=== PATIENT | male | born 1990 | race African-American/Black ===

== ENCOUNTER 2016-11-14 12:26 | Inpatient (IN) | payer MEDICARE, MEDICAID ==
[~2016-11-14] VITALS: Ht 188 cm; Wt 67.2 kg
--- NOTE | 2016-11-14 13:27 | REP ---
Chest x-ray: Two views. History: Chest pain. . Comparison study: No comparison study. . Findings: The lungs are well inflated and free of infiltrate. The pleural angles are sharp. The heart size is normal. Pulmonary vasculature is not increased. No significant bony abnormality is seen. EKG monitoring electrodes overlie the chest. Impression: Negative chest x-ray. Signed by Gennaro Carranza MD 11/14/2016 01:18 P
[2016-11-14] MEDS ORDERED: ASPIRIN 81 MG CHEW TABLET As Ordered ONE (13:30)
[2016-11-14] MEDS ORDERED: MORPHINE 4 MG/ML 1ML SYRINGE As Ordered ONE ×3 (13:30→15:28)
[2016-11-14 13:38] LABS: RETIC HEMOGLOBIN CONTENT CHr 31.6 PG (24-36); RETICULOCYTE % ADVIA2120 7.2 % (0.5-1.5)
[2016-11-14 13:43] LABS: BASO % 0.7 % (0.0-1.0); EOS # 0.1 K/mm3 (0.0-0.50); EOS % 2.1 % (0.0-3.0); LARGE UNSTAINED CELL # 0.2 K/mm3 (0.0-0.4); LYMPH # 2.2 K/mm3 (1.5-6.5); LYMPH % 34.3 % (24.0-44.0); MEAN CORPUSCULAR HEMOGLOBIN 31.6 pg (27.0-33.0); MEAN CORPUSCULAR HGB CONC 33.9 g/dl (32.0-36.5); MEAN CORPUSCULAR VOLUME 93.3 fl (80.0-96.0); MONO # 0.6 K/mm3 (0.0-0.8); MONO % 9.2 % (0.0-5.0); NEUTROPHILS # 3.3 K/mm3 (1.8-7.7); NEUTROPHILS % 50.8 % (36.0-66.0); PLATELET COUNT, AUTOMATED 412 k/mm3 (150-450); RED CELL DISTRIBUTION WIDTH 16.7 % (11.5-14.5); WHITE BLOOD COUNT 6.4 K/mm3 (4.0-10.0)
[2016-11-14 14:03] LABS: ANION GAP 6 MEQ/L (8-16); BLOOD UREA NITROGEN 6 MG/DL (7-18); CALCIUM LEVEL 8.9 MG/DL (8.5-10.1); CARBON DIOXIDE LEVEL 28 MEQ/L (21-32); CHLORIDE LEVEL 109 MEQ/L (98-107); CREATININE FOR GFR 0.73 MG/DL (0.70-1.30); GLOMERULAR FILTRATION RATE > 60.0 (>60); GLUCOSE, FASTING 91 MG/DL (70-105); SODIUM LEVEL 143 MEQ/L (136-145)
[2016-11-14] MEDS ORDERED: IBUP800T23 PO (15:32)
[2016-11-14] MEDS ORDERED: FOLI400T PO (15:32)
[2016-11-14] MEDS ORDERED: HYDROmorphone HCL 1 MG/ML SYRINGE (J1170) IV PRN (15:45)
--- NOTE | 2016-11-14 15:55 | HPEPDOC ---
General Date of Admission 11/14/2016 - 352PM Chief Complaint The patient is a 26-year-old male Presented to the ER with complaints of chest, back and left arm pain for 3 days duration History of Present Illness Patient is a 26 year old male with a past medical history of Sickle cell disease and a hole in the heart who presented to the ER with complaints of left arm, chest and back pain for 3 days duration. Patient notes that the pain began gradually and then persisted. He noted the pain was a sharp / throbbing intensity, rated at 10/10, continuous pain. He notes that he has tried to take ibuprofen for the pain, but there has been no relief. He notes that he has been having some shallow breathing because of the pain. He does not cold sweats. He denies any cough, fever or chills. He denies any nausea or vomiting. Denies abdominal pain, constipation, diarrhea or urinary symptoms. Patient is from [place] and has been here for 2 weeks. He notes that back home, he did not follow up with his primary care physician or [facility] general counsel for greater than 1 year. He notes that he is supposed to take folic acid, but has stopped taking it for the last 1 month. He notes the last time he had a sickle cell crisis was 1 year ago. He has received transfusions in the past and has not had any complications because of it. Home Medications Scheduled Folic Acid (Folic Acid) 400 Mcg Tab 400 MCG PO DAILY (Reported) Scheduled PRN Ibuprofen (Ibuprofen) 800 Mg Tab 800 MG PO TID PRN PRN PAIN (Reported) Allergies Coded Allergies: No Known Allergies (Unverified , 11/14/16) Past Medical History Medical History Sickle cell disease Hole in heart Surgical History None Family History Family History - Mother with sickle cell trait and breast cancer - Father with sickle cell trait Social History Social History - Denies the use of alcohol or illicit drugs, Smokes for the last 10 years at less than 1 ppd - Denies sick contacts - Lives with Girlfriend in [place] for 2 weeks, from [place] originally - Occupation; Student Review of Symptoms Other systems Constitutional: Denies weight loss, change in appetite, or recent trauma Eyes: No visual changes or eye pain Ears, Nose, Throat: Denies nose bleeds, or difficulty swallowing Cardiovascular: Positive chest pain, Mild sweating, No orthopnea Respiratory: Denies cough, or wheezing, Positive for mild shortness of breath GI: Joe nausea, vomiting, abdominal pain, diarrhea or constipation : Denies pain with urination or frequency Musculoskeletal: Denies joint pain or swelling Neuro / Psych: Denies muscle weakness or sensory loss Skin: No skin rashes noted All other review of systems negative; otherwise stated in history of present illness Vital Signs - Vitals: BP 133/60, HR 100, RR 18, Sat 95%NC2L, Temp 98.9F - General: Lying in bed, Uncomfortable, Speaking in full sentences, AAOx3 - HEENT: NC, AT, PERRLA, EOMI - CVS: RRR, +S1S2, - Lungs: Fair air entry bilaterally, Clear to auscultation, No wheezing / rales / rhonchi - Abdomen: Soft, Non-distended, Non-tender, + Bowel sounds x 4 - Extremities: + PPx4, No lower extremity edema, No calf tenderness - Neuro: No focal motor or sensory deficit - Skin: No visible rashes Laboratory Data Labs 24H Laboratory Tests 2 11/14/16 13:15: 11/14/16 13:24: Absolute Reticulocyte Count 246H, Anion Gap 6L, White Blood Count 6.4, Red Blood Count 3.43L, Hemoglobin 10.9L, Hematocrit 32.0L, Mean Corpuscular Volume 93.3, Mean Corpuscular Hemoglobin 31.6, Mean Corpuscular Hemoglobin Concent 33.9 , Red Cell Distribution Width 16.7H, Platelet Count 412, Neutrophils (%) (Auto) 50.8, Lymphocytes (%) (Auto) 34.3, Monocytes (%) (Auto) 9.2H, Eosinophils (%) ( Auto) 2.1, Basophils (%) (Auto) 0.7, Neutrophils # (Auto) 3.3, Lymphocytes # ( Auto) 2.2, Monocytes # (Auto) 0.6, Eosinophils # (Auto) 0.1, Basophils # (Auto) 0.0, Blood Urea Nitrogen 6L, Creatinine 0.73, Sodium Level 143, Potassium Level 4.0, Chloride Level 109H, Carbon Dioxide Level 28, Calcium Level 8.9, Total Creatine Kinase 47, Creatine Kinase MB 1.0, Creatine Kinase MB Relative Index 2.12, Glomerular Filtration Rate > 60.0, Large Unclassified Cells # 0.2, Large Unclassified Cells % 3.0, Percent Reticulocyte Count 7.20H, Reticulocyte Hgb Content (CHr) 31.6, Troponin I < 0.02 CBC/BMP Laboratory Tests 11/14/16 13:24 Calcium Level 8.9, Total Creatine Kinase 47, Red Blood Count 3.43 L, Mean Corpuscular Volume 93.3, Mean Corpuscular Hemoglobin 31.6, Mean Corpuscular Hemoglobin Concent 33.9, Red Cell Distribution Width 16.7 H, Neutrophils (%) ( Auto) 50.8, Lymphocytes (%) (Auto) 34.3, Monocytes (%) (Auto) 9.2 H, Eosinophils (%) (Auto) 2.1, Basophils (%) (Auto) 0.7, Neutrophils # (Auto) 3.3, Lymphocytes # (Auto) 2.2, Monocytes # (Auto) 0.6, Eosinophils # (Auto) 0.1, Basophils # (Auto) 0.0 Plan / VTE VTE Prophylaxis Ordered?: Yes Plan Plan Left arm, chest and back pain likely 2/2 sickle cell pain crisis - Presented with continuous pain for 3 days duration, unable to be controlled by Ibuprofen - History of similar events 1 year ago with chest and back pain - Physical unrevealing - CXR 11/14: negative - EKG 11/14: sinus rhythm, no ST segment deviations or T wave changes - Reticulocyte count elevated, Hg currently at 10.9 (No baseline available) - Will check iron panel, B12, Folate, Haptoglobin, LDH, Direct Dion - Will follow H&H q6 hours, follow reticulocyte count - c/w IV fluid hydration with NS, oxygen supplementation and pain control with Dilaudid - Will keep on PCU Gastrointestinal prophylaxis - Will start protonix DVT prophylaxis - Will start SCDs Will be signed out to ADRIANE Marie MD Nov 14, 2016 15:55
[2016-11-14 16:07] LABS: BILIRUBIN,DIRECT 0.4 MG/DL (0.0-0.2); BILIRUBIN,TOTAL 1.3 MG/DL (0.2-1.0); FOLATE 13.9 NG/ML (>5.4); PERCENT SATURATION 27.8 % (19.7-37.4)
[2016-11-14 16:58] LABS: ADD MORPHOLOGY? YES
[2016-11-14 17:00] LABS: ANISOCYTOSIS 1+; SICKLE CELLS 3+
[2016-11-14 17:02] LABS: POIKILOCYTOSIS 1+; POLYCHROMASIA 1+
[2016-11-14 17:08] LABS: HOWELL-JOLLY BODIES 1+
[2016-11-14] MEDS ORDERED: HYDROmorphone HCL 1 MG/ML SYRINGE (J1170) As Ordered ONE (17:10)
[2016-11-14] MEDS ORDERED: LORazepam 2 MG/ML VIAL (J2060) IV PRN (19:45)
--- NOTE | 2016-11-14 20:09 | EDDOCDS ---
Physician Documentation [facility] Name: Aureliano Crockett Age: 26 yrs Sex: Male : 1990 Arrival Date: 11/14/2016 Time: 12:26 Bed 9 Private MD: NO PRIMARY PHYSICIAN, . Disposition: 11/14/16 15:03 Hospitalization ordered by Cordell Bell for Inpatient Admission. Preliminary diagnosis are Other sickle-cell disorders with crisis, Chest pain, unspecified. - Bed requested for PCU. - Status is Inpatient Admission. kas2 - Condition is Stable. - Problem is new. - Symptoms are unchanged. Historical: - Allergies: no known allergies; - Home Meds: 1. Folic Acid Unknown Oral once daily 2. ibuprofen 800 mg Oral tab 1 tab 3 times per day - PMHx: heart valve regurgitation; Heart Murmur; Sickle Cell; - PSHx: none; - Social history: Smoking status: Patient uses tobacco products, light tobacco smoker. No barriers to communication noted, The patient speaks fluent Kiswahili, Speaks appropriately for age. - Family history: Not pertinent. - : The pt / caregiver states he / she is not on anticoagulants. Home medication list is obtained from the patient. - Exposure Risk Screening:: None identified. Vital Signs: 11/14 12:27 BP 148 / 81; Pulse 92; Resp 18; Temp 98.9(O); Pulse Ox 98% on R/A; Weight 63.5 kg / elp 139.99 lbs (R); Height 6 ft. 2 in. (187.96 cm) (R); Pain 9/10; 12:58 BP 136 / 79 (auto/); ms18 12:59 Pulse 88 MON; Pulse Ox 98% ; ms18 13:13 BP 135 / 70 (auto/); ms18 13:14 Pulse 96 MON; Pulse Ox 95% ; ms18 13:28 BP 122 / 67 (auto/); ms18 13:32 Pulse 92 MON; Pulse Ox 96% ; ms18 13:43 BP 124 / 65 (auto/); ms18 13:44 Pulse 92 MON; Pulse Ox 94% ; ms18 13:58 BP 136 / 72 (auto/); ms18 13:59 Pulse 82 MON; Pulse Ox 95% ; ms18 14:13 BP 133 / 60 (auto/); ms18 14:13 Pulse 100 MON; Pulse Ox 95% ; ms18 14:28 BP 140 / 66 (auto/); ms18 14:29 Pulse 84 MON; Pulse Ox 96% ; ms18 14:43 BP 142 / 63 (auto/); ms18 14:44 Pulse 82 MON; Pulse Ox 97% ; ms18 14:58 BP 119 / 57 (auto/); ms18 14:59 Pulse 82 MON; Pulse Ox 98% ; ms18 15:14 BP 135 / 62 (auto/); ms18 15:14 Pulse 86 MON; Pulse Ox 100% ; ms18 15:32 BP 137 / 67 (auto/); ms18 15:33 Pulse 90 MON; Pulse Ox 100% ; ms18 17:04 BP 154 / 74; Pulse 93; Resp 18; Temp 99.9(TE); Pulse Ox 98% on R/A; Pain 9/10; ms18 17:04 BP 154 / 74 (auto/); kas2 17:04 Pulse 98 MON; Pulse Ox 98% ; kas2 17:28 Pulse 76 MON; Pulse Ox 99% ; ms18 17:29 BP 138 / 65 (auto/); Resp 20; ms18 19:30 BP 157 / 70; Pulse 100; Resp 25; Temp 97.9(O); Pulse Ox 97% on R/A; Pain 9/10; jmv 12:27 Body Mass Index 17.97 (63.50 kg, 187.96 cm) elp MDM: 12:43 ECG WITH READING ER PHYS+CARDIAG ordered. EDMS 13:02 Fur Scraper/Pulse Ox/q 30 min VS ordered. br1 13:02 IV Saline Lock ordered. br1 13:02 Rhythm Strip to chart ordered. br1 13:02 Undress patient appropriately for examination ordered. br1 13:03 Basic Metabolic Profile Ordered. EDMS 13:03 CBC with Diff Ordered. EDMS 13:03 Cardiac Injury Profile Ordered. EDMS 13:03 Troponin Ordered. EDMS 13:04 Chest, 2 View (pa\E\lat) Ordered. EDMS 13:05 Reticulocyte Count Ordered. EDMS 13:20 NS 0.9% 1000 ml IV at bolus once ordered. br1 13:20 morphine 4 mg IVP once ordered. br1 13:20 Aspirin 324 mg PO once ordered. br1 13:56 CBC with Diff Reviewed. br1 13:56 Reticulocyte Count Reviewed. br1 14:08 Basic Metabolic Profile Reviewed. br1 14:08 Cardiac Injury Profile Reviewed. br1 14:08 Troponin Reviewed. br1 14:08 Chest, 2 View (pa\E\lat) Reviewed. br1 14:10 morphine 4 mg IVP once ordered. br1 14:55 morphine 4 mg IVP once ordered. br1 14:56 BED REQUEST+ADM ordered. EDMS 15:32 Admission / Observation Status ordered. EDMS 15:32 ELECTROCARDIOGRAM ADULT ordered. EDMS 15:32 REGULAR DIET ordered. EDMS 15:33 CARDIAC INJURY PROFILE Ordered. EDMS 15:33 TROPONIN Ordered. EDMS 15:33 URINALYSIS Ordered. EDMS 15:33 IRON (FE) Ordered. EDMS 15:33 TOTAL IRON BINDING CAPACIT Ordered. EDMS 15:33 FERRITIN Ordered. EDMS 15:33 VITAMIN B12 LEVEL Ordered. EDMS 15:33 FOLATE Ordered. EDMS 15:33 HAPTOGLOBIN Ordered. EDMS 15:34 LACTATE DEHYDROGENASE Ordered. EDMS 15:34 BILIRUBIN,TOTAL Ordered. EDMS 15:34 BILIRUBIN,DIRECT Ordered. EDMS 15:35 URINE CULTURE Ordered. EDMS 16:00 Financial registration complete. zo 16:[address] [facility] [place] Payment Agreement was scanned into [employer] and attached to record. zo 16:04 HEMOGLOBIN & HEMATOCRIT Ordered. EDMS 16:05 BLOOD CULTURES Ordered. EDMS 16:18 DIRECT MEGAN Ordered. EDMS 16:59 RBC MORPH PROF NO CHARGE Ordered. EDMS 17:13 Dilaudid - HYDROmorphone 1 mg IVP once; hospitalist order ordered. ms18 19:31 CARDIAC INJURY PROFILE Ordered. EDMS 19:32 CARDIAC INJURY PROFILE Ordered. EDMS 19:32 TROPONIN Ordered. EDMS 19:32 TROPONIN Ordered. EDMS 19:32 CBC WITH DIFFERENTIAL Ordered. EDMS 19:32 COMPLETE COMPHRENSIVE METABOLI Ordered. EDMS 19:32 MAGNESIUM LEVEL Ordered. EDMS 19:32 HEMOGLOBIN & HEMATOCRIT Ordered. EDMS 19:32 HEMOGLOBIN & HEMATOCRIT Ordered. EDMS 19:32 HEMOGLOBIN & HEMATOCRIT Ordered. EDMS 19:32 HEMOGLOBIN & HEMATOCRIT Ordered. EDMS 19:32 RETICULOCYTE COUNT Ordered. EDMS Administered Medications: 13:39 Drug: NS 0.9% 1000 ml [sodium chloride 0.9 % intravenous solution] Route: IV; Rate: ms18 bolus; Site: left antecubital; 17:07 Follow up: IV Status: Completed infusion; IV Intake: 1000ml ms18 13:39 Drug: morphine 4 mg [morphine 4 mg/mL intravenous cartridge (1 mL)] Route: IVP; Site: ms18 left antecubital; 14:19 Follow up: Response: Pain is unchanged, physician notified ms18 13:39 Drug: Aspirin 324 mg [aspirin 81 mg chewable tablet (4 tabs)] Route: PO; ms18 14:19 Follow up: Response: No Adverse Reaction ms18 14:25 Drug: morphine 4 mg [morphine 4 mg/mL intravenous cartridge (1 mL)] Route: IVP; Site: ms18 left antecubital; 17:07 Follow up: Response: No Adverse Reaction; Pain is unchanged, physician notified ms18 15:36 Drug: morphine 4 mg [morphine 4 mg/mL intravenous cartridge (1 mL)] Route: IVP; Site: ms18 left antecubital; 17:08 Follow up: Response: No Adverse Reaction; Pain is unchanged, physician notified ms18 17:21 Drug: Dilaudid - HYDROmorphone 1 mg [hydromorphone 1 mg/mL injection syringe (1 mL)] ms18 Route: IVP; Site: left antecubital; Signatures: Dispatcher [employer] EDEvita Suresh RN RN jo3 Olin, Zoeann zo Roggie, Brian, MD MD br1 Aleena Malhotra RN RN ms18 Brijesh Pablo RN RN mts Jannie Malhotra RN RN kas2 The chart was reviewed and I authenticate all verbal orders and agree with the evaluation and treatment provided.Corrections: (The following items were deleted from the chart) 16:06 15:33 HEMOGLOBIN & HEMATOCRIT ordered. EDMS EDMS 16:06 15:35 BLOOD CULTURES ordered. EDMS EDMS 16:41 15:32 INDIRECT MEGAN TYPE SPECIFIC ordered. EDMS EDMS 19:36 17:01 RBC MORPH PROF NO CHARGE ordered. EDMS EDMS Attachments: 16:00 [facility] Payment Agreement zo MTDD
--- NOTE | 2016-11-14 20:09 | EDDOCDS ---
Nurse's Notes [facility] Name: Aureliano Crockett Age: 26 yrs Sex: Male : 1990 Arrival Date: 11/14/2016 Time: 12:26 Bed 9 Private MD: NO PRIMARY PHYSICIAN, . Diagnosis: Other sickle-cell disorders with crisis;Chest pain, unspecified Presentation: 11/14 12:39 Presenting complaint: Patient states: Extreme pain in left arm, shoulder radiating down jo3 to hand. Also reporting left anterior chest pain. Has sickle cell. 12:45 Adult Sepsis Screening: Adult Sepsis Screening: Patient's respiratory rate is less than jo3 22. Systolic blood pressure is greater than 100. Patient has a qSOFA score of 0- Negative Sepsis Screen. Suicide/Homicide risk assessment- the patient denies having any suicidal and/or homicidal ideations and does not present with any other emotional, behavioral or mental health complaints. Status: Patient is not a service writer advisor or dependent. Transition of care: patient was not received from another setting of care. 12:45 Acuity: OVIDIO Level 3 jo3 12:45 Acuity: OVIDIO Level 2 jo3 12:45 Method Of Arrival: Walkin/Carried/Asstd jo3 Triage Assessment: 12:47 General: Appears uncomfortable, Behavior is appropriate for age, cooperative. Pain: jo3 Location: left shoulder, arm and left chest Pain. HIV screening NA for this visit Offered previously. Neurological: Level of Consciousness is awake, alert, Oriented to person, place, time. Respiratory: Airway is patent Respiratory effort is even, unlabored. Historical: - Allergies: no known allergies; - Home Meds: 1. Folic Acid Unknown Oral once daily 2. ibuprofen 800 mg Oral tab 1 tab 3 times per day - PMHx: heart valve regurgitation; Heart Murmur; Sickle Cell; - PSHx: none; - Social history: Smoking status: Patient uses tobacco products, light tobacco smoker. No barriers to communication noted, The patient speaks fluent [place]an, Speaks appropriately for age. - Family history: Not pertinent. - : The pt / caregiver states he / she is not on anticoagulants. Home medication list is obtained from the patient. - Exposure Risk Screening:: None identified. Screenin:26 Screening information is obtained from the patient. Fall risk: No risks identified. ms18 Assistance ADL's: requires no assistance with activities of daily living. Abuse/DV Screen: The patient / caregiver reports he/she is: not in a situation that causes fear, pain or injury. Nutritional screening: No deficits noted. home support is adequate. 17:04 Advance Directives: There is no living will. ms18 Assessment: 13:26 General: Appears in no apparent distress, uncomfortable, Behavior is appropriate for ms18 age, cooperative. Pain: Location: left scapular area, anterior aspect of left upper chest, left breast and left arm Pain currently is 9 out of 10 on a pain scale. Neurological: Level of Consciousness is awake, alert, obeys commands, Oriented to person, place, time, Moves all extremities. Speech is normal. Respiratory: Airway is patent Respiratory effort is even, unlabored. GI: Abdomen is non- distended. Derm: Skin is pink, warm & dry. normal. Musculoskeletal: Range of motion intact in all extremities. No deformity noted Reports pain in back, chest and left arm since 3 days ago. 14:25 General: Appears in no apparent distress, uncomfortable, Behavior is appropriate for ms18 age, cooperative. Pain: Pain currently is 9 out of 10 on a pain scale. Neurological: Level of Consciousness is awake, alert, obeys commands, Oriented to person, place, time. Cardiovascular: Rhythm is sinus rhythm. Respiratory: Airway is patent Respiratory effort is even, unlabored. Derm: Skin is pink, warm & dry. normal. 15:16 General: Appears in no apparent distress, Hospitalist in the room with pt at this time. ms18 Will continue to monitor pt. Neurological: Level of Consciousness is awake, alert, obeys commands. Respiratory: Airway is patent Respiratory effort is even, unlabored. Derm: Skin is pink, warm & dry. normal. 16:58 General: Appears in no apparent distress, Behavior is appropriate for age, cooperative, ms18 PT states that his pain has not changed at all. PT rates 9/10 and is currently eating fast food brought in by a family member. . General: Room number received at this time, will send SBAR. Pain: Pain currently is 9 out of 10 on a pain scale. Neurological: Level of Consciousness is awake, alert, obeys commands, Oriented to person, place, time. Respiratory: Airway is patent Respiratory effort is even, unlabored. Derm: Skin is pink, warm & dry. 17:21 General: Pt and family member have asked several times about pain medication. . ms18 17:34 General: Appears in no apparent distress, Called PCU, at first was told that the pt ms18 could come upstairs to his bed assignment. PCU called back and stated that the room was dirty and would have to wait until the room with cleaned. Pt informed of this. Neurological: Level of Consciousness is awake, alert, obeys commands, Oriented to person, place, time. Cardiovascular: Rhythm is sinus rhythm. Respiratory: No deficits noted. Derm: Skin is pink, warm & dry. normal. 18:32 General: Appears in no apparent distress, Awaiting PCU to call that the bed is clean ms18 and ready. Will continue to monitor pt. Respiratory: No deficits noted. Derm: Skin is pink, warm & dry. normal. 19:02 General: Verbal report given by Aleena Berumen RN. Assumed care of patient at this time.. kas2 19:21 General: Appears in no apparent distress, uncomfortable, well nourished, well groomed, kas2 Behavior is appropriate for age, cooperative. Pain: Location: left arm and chest and back and left breast and anterior aspect of left upper chest and left scapular area Pain currently is 6 out of 10 on a pain scale. Neurological: Level of Consciousness is awake, alert, obeys commands, Oriented to person, place, time. Cardiovascular: Capillary refill < 3 seconds Heart tones S1 S2 present Rhythm is sinus tachycardia No ectopy. Respiratory: No deficits noted. Airway is patent Respiratory effort is even, unlabored, Respiratory pattern is regular, symmetrical, Breath sounds are clear bilaterally. GI: Abdomen is flat, non- distended Bowel sounds present X 4 quads. Abd is soft and non tender X 4 quads. Derm: Skin is intact, Skin is dry, Skin is pink, warm & dry. Skin temperature is warm. Musculoskeletal: Range of motion intact in all extremities. No deformity noted. 19:39 General: Patient is very anxious and complaining of pain running down his left arm kas2 8/10. Patient is requesting more pain meds and ativan. Hospitalist called.. 19:43 General: Resident from hospitalist team called back and RN let him know patients kas2 concerns and wishes and he said he would call Dr. Bell and call RN back in ED.. 19:56 General: RN called Kyara RN on PCU and let her know that we had not heard back from [facility] Dr. Bell on patients pain meds and order for ativan. . Vital Signs: 12:27 BP 148 / 81; Pulse 92; Resp 18; Temp 98.9(O); Pulse Ox 98% on R/A; Weight 63.5 kg (R); elp Height 6 ft. 2 in. (187.96 cm) (R); Pain 9/10; 12:58 BP 136 / 79 (auto/); ms18 12:59 Pulse 88 MON; Pulse Ox 98% ; ms18 13:13 BP 135 / 70 (auto/); ms18 13:14 Pulse 96 MON; Pulse Ox 95% ; ms18 13:28 BP 122 / 67 (auto/); ms18 13:32 Pulse 92 MON; Pulse Ox 96% ; ms18 13:43 BP 124 / 65 (auto/); ms18 13:44 Pulse 92 MON; Pulse Ox 94% ; ms18 13:58 BP 136 / 72 (auto/); ms18 13:59 Pulse 82 MON; Pulse Ox 95% ; ms18 14:13 BP 133 / 60 (auto/); ms18 14:13 Pulse 100 MON; Pulse Ox 95% ; ms18 14:28 BP 140 / 66 (auto/); ms18 14:29 Pulse 84 MON; Pulse Ox 96% ; ms18 14:43 BP 142 / 63 (auto/); ms18 14:44 Pulse 82 MON; Pulse Ox 97% ; ms18 14:58 BP 119 / 57 (auto/); ms18 14:59 Pulse 82 MON; Pulse Ox 98% ; ms18 15:14 BP 135 / 62 (auto/); ms18 15:14 Pulse 86 MON; Pulse Ox 100% ; ms18 15:32 BP 137 / 67 (auto/); ms18 15:33 Pulse 90 MON; Pulse Ox 100% ; ms18 17:04 BP 154 / 74; Pulse 93; Resp 18; Temp 99.9(TE); Pulse Ox 98% on R/A; Pain 9/10; ms18 17:04 BP 154 / 74 (auto/); kas2 17:04 Pulse 98 MON; Pulse Ox 98% ; kas2 17:28 Pulse 76 MON; Pulse Ox 99% ; ms18 17:29 BP 138 / 65 (auto/); Resp 20; ms18 19:30 BP 157 / 70; Pulse 100; Resp 25; Temp 97.9(O); Pulse Ox 97% on R/A; Pain 9/10; jmv 12:27 Body Mass Index 17.97 (63.50 kg, 187.96 cm) elp Vitals: 12:27 Log In Time: November 14, 2016 at 12:25. elp ED Course: 12:26 Patient visited by Bindu Cee PCA. elp 12:26 Patient moved to Waiting elp 12:27 NO PRIMARY PHYSICIAN, . is Private Physician. elp 12:27 Patient visited by Bindu Cee PCA. elp 12:28 Patient visited by Bindu Cee PCA. elp 12:28 Patient moved to Pre RCE elp 12:41 Patient moved to PD2 / jo3 12:46 Triage Initiated jo3 12:48 Patient visited by Evita Teran RN. jo3 12:51 EKG done. (by ED staff). Reviewed by Rosamaria Heredia MD. ct3 12:52 Patient visited by Onelia Wagner PCA. ct3 12:56 Aleena Malhotra,RN is Primary Nurse. ms18 12:56 Patient moved to 9 ms18 12:59 Accompanied by Family Member, Patient has correct armband on for positive ct3 identification. Placed in gown. Bed in low position. Call light in reach. Side rails up X2. shelter monitor on. Pulse ox on. NIBP on. 13:00 Patient visited by Onelia Wagner PCA. ct3 13:01 Naeem Molina MD is Attending Physician. br1 13:19 Patient visited by Naeem Molina MD. br1 13:25 Patient visited by Aleena Malhotra,RN. ms18 13:25 Reticulocyte Count Sent. ms18 13:25 Basic Metabolic Profile Sent. ms18 13:25 CBC with Diff Sent. ms18 13:26 The patient / caregiver is instructed regarding the plan of care and ED course. ms18 Property :Personal belongings accompany Pt. 13:26 Cardiac Injury Profile Sent. ms18 13:26 Troponin Sent. ms18 13:26 Inserted saline lock: 18 gauge in left antecubital area and blood collected. The ms18 patient tolerated the procedure well. 13:39 Patient visited by Aleena Malhotra RN. ms18 14:07 Chest, 2 View (pa\E\lat) Returned. EDMS 14:24 Patient visited by Aleena Malhotra RN. ms18 15:01 Patient visited by Naeem Molina MD. br1 15:03 Cordell Bell is Hospitalizing Provider. br1 16:00 [facility] Payment Agreement was scanned into [employer] and attached to record. zo 16:05 Patient name changed from Aureliano\S\\S\Sapphire\S\ to Aureliano\S\ \S\Sapphire. EDMS 17:04 No procedures done that require assistance. ms18 18:32 Patient visited by Aleena Malhotra RN. ms18 18:59 Jannie Malhotra RN is Primary Nurse. kas2 19:02 Patient visited by Jannie Malhotra RN. kas2 19:25 Patient visited by Jannie Malhotra RN. kas2 19:30 Patient visited by Christopher Holland PCA. jmv 19:44 Patient visited by Jannie Malhotra RN. kas2 19:52 Patient visited by Jannie Malhotra RN. kas2 19:55 Patient visited by Jannie Malhotra RN. kas2 19:57 Patient visited by Jannie Malhotra RN. kas2 Administered Medications: 13:39 Drug: NS 0.9% 1000 ml [sodium chloride 0.9 % intravenous solution] Route: IV; Rate: ms18 bolus; Site: left antecubital; 17:07 Follow up: IV Status: Completed infusion; IV Intake: 1000ml ms18 13:39 Drug: morphine 4 mg [morphine 4 mg/mL intravenous cartridge (1 mL)] Route: IVP; Site: ms18 left antecubital; 14:19 Follow up: Response: Pain is unchanged, physician notified ms18 13:39 Drug: Aspirin 324 mg [aspirin 81 mg chewable tablet (4 tabs)] Route: PO; ms18 14:19 Follow up: Response: No Adverse Reaction ms18 14:25 Drug: morphine 4 mg [morphine 4 mg/mL intravenous cartridge (1 mL)] Route: IVP; Site: ms18 left antecubital; 17:07 Follow up: Response: No Adverse Reaction; Pain is unchanged, physician notified ms18 15:36 Drug: morphine 4 mg [morphine 4 mg/mL intravenous cartridge (1 mL)] Route: IVP; Site: ms18 left antecubital; 17:08 Follow up: Response: No Adverse Reaction; Pain is unchanged, physician notified ms18 17:21 Drug: Dilaudid - HYDROmorphone 1 mg [hydromorphone 1 mg/mL injection syringe (1 mL)] ms18 Route: IVP; Site: left antecubital; Intake: 17:07 IV: 1000.00ml; Total: 1000.00ml. ms18 Order Results: Lab Order: Basic Metabolic Profile; SPEC'M 11/14/16 13:24 Test: GLUCOSE, FASTING; Value: 91; Range: 70-105; Units: MG/DL; Status: F Test: BLOOD UREA NITROGEN; Value: 6; Range: 7-18; Abnormal: Below low normal; Units: MG/DL; Status: F Test: CREATININE FOR GFR; Value: 0.73; Range: 0.70-1.30; Units: MG/DL; Status: F Test: GLOMERULAR FILTRATION RATE; Value: > 60.0; Range: >60; Status: F Test: SODIUM LEVEL; Value: 143; Range: 136-145; Units: MEQ/L; Status: F Test: POTASSIUM SERUM; Value: 4.0; Range: 3.5-5.1; Units: MEQ/L; Status: F Test: CHLORIDE LEVEL; Value: 109; Range: 98-107; Abnormal: Above high normal; Units: MEQ/L; Status: F Test: CARBON DIOXIDE LEVEL; Value: 28; Range: 21-32; Units: MEQ/L; Status: F Test: ANION GAP; Value: 6; Range: 8-16; Abnormal: Below low normal; Units: MEQ/L; Status: F Test: CALCIUM LEVEL; Value: 8.9; Range: 8.5-10.1; Units: MG/DL; Status: F Test Note: ; Units are mL/min/1.73 m2 Chronic Kidney Disease Staging per NKF: Stage I & II GFR >=60 Normal to Mildly Decreased Stage III GFR 30-59 Moderately Decreased Stage IV GFR 15-29 Severely Decreased Stage V GFR <15 Very Little GFR Left ESRD GFR <15 on [employer] Lab Order: CBC with Diff; SPEC'M 11/14/16 13:24 Test: WHITE BLOOD COUNT; Value: 6.4; Range: 4.0-10.0; Units: K/mm3; Status: F Test: RED BLOOD COUNT; Value: 3.43; Range: 4.30-6.10; Abnormal: Below low normal; Units: M/mm3; Status: F Test: HEMOGLOBIN; Value: 10.9; Range: 14.0-18.0; Abnormal: Below low normal; Units: g/dl; Status: F Test: HEMATOCRIT; Value: 32.0; Range: 42.0-52.0; Abnormal: Below low normal; Units: %; Status: F Test: MEAN CORPUSCULAR VOLUME; Value: 93.3; Range: 80.0-96.0; Units: fl; Status: F Test: MEAN CORPUSCULAR HEMOGLOBIN; Value: 31.6; Range: 27.0-33.0; Units: pg; Status: F Test: MEAN CORPUSCULAR HGB CONC; Value: 33.9; Range: 32.0-36.5; Units: g/dl; Status: F Test: RED CELL DISTRIBUTION WIDTH; Value: 16.7; Range: 11.5-14.5; Abnormal: Above high normal; Units: %; Status: F Test: PLATELET COUNT, AUTOMATED; Value: 412; Range: 150-450; Units: k/mm3; Status: F Test: NEUTROPHILS %; Value: 50.8; Range: 36.0-66.0; Units: %; Status: F Test: LYMPH %; Value: 34.3; Range: 24.0-44.0; Units: %; Status: F Test: MONO %; Value: 9.2; Range: 0.0-5.0; Abnormal: Above high normal; Units: %; Status: F Test: EOS %; Value: 2.1; Range: 0.0-3.0; Units: %; Status: F Test: BASO %; Value: 0.7; Range: 0.0-1.0; Units: %; Status: F Test: LARGE UNSTAINED CELL %; Value: 3.0; Range: 0.0-4.0; Units: %; Status: F Test: NEUTROPHILS #; Value: 3.3; Range: 1.8-7.7; Units: K/mm3; Status: F Test: LYMPH #; Value: 2.2; Range: 1.5-6.5; Units: K/mm3; Status: F Test: MONO #; Value: 0.6; Range: 0.0-0.8; Units: K/mm3; Status: F Test: EOS #; Value: 0.1; Range: 0.0-0.50; Units: K/mm3; Status: F Test: BASO #; Value: 0.0; Range: 0.0-0.2; Units: K/mm3; Status: F Test: LARGE UNSTAINED CELL #; Value: 0.2; Range: 0.0-0.4; Units: K/mm3; Status: F Lab Order: Cardiac Injury Profile; [facility] 11/14/16 13:24 Test: CPK CREATINE PHOSPHOKINASE; Value: 47; Range: 39-308; Units: U/L; Status: F Test: CK-MB VALUE MASS; Value: 1.0; Range: 0.0-3.6; Units: NG/ML; Status: F Test: MB/CK RELATIVE INDEX; Value: 2.12; Range: < OR =4; Status: F Test Note: ; DIAGNOSIS CRITERIA MMB ng/ml Relative Index (RI) NON-AMI < or = 5 N/A GOMEZ ZONE > 5 < or = 4 AMI > 5 > 4 Lab Order: Troponin; [facility] 11/14/16 13:24 Test: TROPONIN I; Value: < 0.02; Range: < 0.10; Units: NG/ML; Status: F Test Note: ; Troponin I Reference Interval for [employer] LOCI: 99th Percentile= 0.00-0.045 ng/ml Risk Stratification: <= 0.10 ng/ml Decreased Risk for Adverse Clinical Events. 0.10-1.50 ng/ml Increased Risk for Adverse Clinical Events. Evaluation of additional criterion and/or repeat testing in 2-6 hours is suggested to rule out myocardial damage. >= 1.50 ng/ml Indicative of Myocardial Injury. Lab Order: Reticulocyte Count; [facility] 11/14/16 13:24 Test: RETICULOCYTE % [id number]; Value: 7.20; Range: 0.5-1.5; Abnormal: Above high normal; Units: %; Status: F Test: RETICULOCYTE ABSOLUTE [id number]; Value: 246; Range: 17-77; Abnormal: Above high normal; Units: x10(9)/L; Status: F Test: RETIC HEMOGLOBIN CONTENT CHr; Value: 31.6; Range: 24-36; Units: PG; Status: F Lab Order: CARDIAC INJURY PROFILE; [facility]11/14/16 18:19 Test: CPK CREATINE PHOSPHOKINASE; Value: 52; Range: 39-308; Units: U/L; Status: F Test: CK-MB VALUE MASS; Value: 1.0; Range: 0.0-3.6; Units: NG/ML; Status: F Test: MB/CK RELATIVE INDEX; Value: 1.92; Range: < OR =4; Status: F Test Note: ; DIAGNOSIS CRITERIA MMB ng/ml Relative Index (RI) NON-AMI < or = 5 N/A GOMEZ ZONE > 5 < or = 4 AMI > 5 > 4 Lab Order: TROPONIN; 11/14/16 18:19 Test: TROPONIN I; Value: < 0.02; Range: < 0.10; Units: NG/ML; Status: F Test Note: ; Troponin I Reference Interval for [employer] LOCI: 99th Percentile= 0.00-0.045 ng/ml Risk Stratification: <= 0.10 ng/ml Decreased Risk for Adverse Clinical Events. 0.10-1.50 ng/ml Increased Risk for Adverse Clinical Events. Evaluation of additional criterion and/or repeat testing in 2-6 hours is suggested to rule out myocardial damage. >= 1.50 ng/ml Indicative of Myocardial Injury. Lab Order: TOTAL IRON BINDING CAPACIT; 11/14/16 13:15 Test: IRON (FE); Value: 98; Range: 65-175; Units: UG/DL; Status: F Test: TOTAL IRON BINDING CAPACITY; Value: 353; Range: 250-450; Units: UG/DL; Status: F Test: PERCENT SATURATION; Value: 27.8; Range: 19.7-37.4; Units: %; Status: F Lab Order: FERRITIN; [facility] 11/14/16 13:15 Test: FERRITIN; Value: 1095; Range: 26-388; Abnormal: Above high normal; Units: NG/ML; Status: F Lab Order: VITAMIN B12 LEVEL; 11/14/16 13:15 Test: VITAMIN B12 LEVEL; Value: 473; Range: 247-911; Units: PG/ML; Status: F Test Note: ; VITAMIN B12 NORMAL RANGE NORMAL 247 - 911 PG/ML INDETERMINATE 211 - 246 PG/ML DEFICIENT LESS THAN 211 PG/ML Lab Order: FOLATE; 11/14/16 13:15 Test: FOLATE; Value: 13.9; Range: >5.4; Units: NG/ML; Status: F Test Note: ; FOLATE NORMAL RANGE NORMAL GREATER THAN 5.4 NG/ML INDETERMINATE 3.4-5.4 NG/ML DEFICIENT LESS THAN 3.4 NG/ML Lab Order: LACTATE DEHYDROGENASE; 11/14/16 13:15 Test: LDH LACTATE DEHYDROGENASE; Value: 245; Range: 87-241; Abnormal: Above high normal; Units: U/L; Status: F Lab Order: BILIRUBIN,TOTAL; 11/14/16 13:15 Test: BILIRUBIN,TOTAL; Value: 1.3; Range: 0.2-1.0; Abnormal: Above high normal; Units: MG/DL; Status: F Lab Order: BILIRUBIN,DIRECT; 11/14/16 13:15 Test: BILIRUBIN,DIRECT; Value: 0.4; Range: 0.0-0.2; Abnormal: Above high normal; Units: MG/DL; Status: F Lab Order: HEMOGLOBIN & HEMATOCRIT; 11/14/16 18:19 Test: HEMOGLOBIN; Value: 10.3; Range: 14.0-18.0; Abnormal: Below low normal; Units: g/dl; Status: F Test: HEMATOCRIT; Value: 31.4; Range: 42.0-52.0; Abnormal: Below low normal; Units: %; Status: F Lab Order: DIRECT MEGAN; 11/14/16 13:15 Test: ELEANOR RESULT CALC; Value: NEGATIVE; Status: F Lab Order: RBC MORPH PROF NO CHARGE; 11/14/16 13:24 Test: PLATELET ESTIMATE; Range: NORMAL; Status: I Test: POLYCHROMASIA; Value: 1+; Status: F Test: POIKILOCYTOSIS; Value: 1+; Status: F Test: ANISOCYTOSIS; Value: 1+; Status: F Test: BEY-JOLLY BODIES; Value: 1+; Status: F Test: SICKLE CELLS; Value: 3+; Status: F Test: PLATELET ESTIMATE; Value: NORMAL; Range: NORMAL; Status: F Radiology Order: Chest, 2 View (pa\E\lat) Test: Chest, 2 View (pa\E\lat) REASON FOR EXAMINATION: Chest Pain; Chest x-ray: Two views.; ; History: Chest pain. .; ; Comparison study: No comparison study. .; ; Findings: The lungs are well inflated and free of infiltrate. The pleural; angles are sharp. The heart size is normal. Pulmonary vasculature is not; increased. No significant bony abnormality is seen. EKG monitoring electrodes; overlie the chest.; ; Impression:; ; Negative chest x-ray.; ; ; Signed by; Gennaro Carranza MD 11/14/2016 01:18 P; Outcome: 15:03 Decision to Hospitalize by Provider. br1 17:04 Discharge Assessment: Patient awake, alert and oriented x 3. No cognitive and/or ms18 functional deficits noted. Patient verbalized understanding of disposition instructions. patient administered narcotics - yes. Patient was admitted to the hospital or transferred to another facility. The following High Risk Discharge criteria are identified: None. Admitted to PCU accompanied by nurse, accompanied by tech, family with patient, via stretcher, with oxygen, on monitor, with chart. Condition: stable. No special radiology studies were completed. Property :Personal belongings accompany Pt. 20:08 Patient left the ED. kas2 Signatures: Dispatcher [employer] EDMS Evita Teran RN RN Carolee Murray Brian, MD MD br1 Onelia Wagner, DIE CUTTER DIAMOND DIE CUTTER DIAMOND ct3 Bindu Cee, DIE CUTTER DIAMOND DIE CUTTER DIAMOND Aleena Combs RN RN ms18 Jannie Malhotra RN RN kas2 Christopher Holland, DIE CUTTER DIAMOND DIE CUTTER DIAMOND jmv MTDD
[2016-11-14 20:26] VITALS: BP 122/84
[2016-11-14] MEDS: HYDROmorphone HCL 2 MG/ML 1ML VIAL (J1170) IV PRN ×2 (20:29→23:44)
[2016-11-14] MEDS: SENOKOT S TAB PO SCH (20:29)
[2016-11-14] MEDS: NS 1,000 ML IV SCH (20:31)
[2016-11-14] MEDS: PANTOPRAZOLE 40MG TAB (PROTONIX) PO SCH (22:41)
[2016-11-14 23:56] VITALS: BP 107/56
[2016-11-15] VITALS (7 sets, daily range): BP systolic 95–136; BP diastolic 49–70; O2SAT 92
[2016-11-15] MEDS: NS 1,000 ML IV SCH (02:28)
[2016-11-15] MEDS: HYDROmorphone HCL 2 MG/ML 1ML VIAL (J1170) IV PRN ×4 (03:16→21:29)
[2016-11-15 05:24] LABS: BASO % 0.4 % (0.0-1.0); EOS # 0.3 K/mm3 (0.0-0.50); EOS % 2.8 % (0.0-3.0); LARGE UNSTAINED CELL # 0.3 K/mm3 (0.0-0.4); LARGE UNSTAINED CELL % 2.6 % (0.0-4.0); LYMPH # 4.2 K/mm3 (1.5-6.5); LYMPH % 34.9 % (24.0-44.0); MEAN CORPUSCULAR HEMOGLOBIN 31.6 pg (27.0-33.0); MEAN CORPUSCULAR HGB CONC 33.2 g/dl (32.0-36.5); MEAN CORPUSCULAR VOLUME 95.1 fl (80.0-96.0); MONO # 1.1 K/mm3 (0.0-0.8); MONO % 9.8 % (0.0-5.0); NEUTROPHILS # 5.6 K/mm3 (1.8-7.7); NEUTROPHILS % 49.6 % (36.0-66.0); PLATELET COUNT, AUTOMATED 361 k/mm3 (150-450); RETIC HEMOGLOBIN CONTENT CHr 32.8 PG (24-36); RETICULOCYTE ABSOLUTE ADVIA212 251 x10(9)/L (17-77); WHITE BLOOD COUNT 11.2 K/mm3 (4.0-10.0)
[2016-11-15 05:29] LABS: ALBUMIN/GLOBULIN RATIO 1.48 (1.00-1.93); ALKALINE PHOSPHATASE 60 U/L (45-117); ALT/SGPT 22 U/L (12-78); ANION GAP 5 MEQ/L (8-16); AST/SGOT 17 U/L (15-37); BILIRUBIN,TOTAL 1.1 MG/DL (0.2-1.0); BLOOD UREA NITROGEN 5 MG/DL (7-18); CALCIUM LEVEL 8.1 MG/DL (8.5-10.1); CARBON DIOXIDE LEVEL 29 MEQ/L (21-32); CHLORIDE LEVEL 107 MEQ/L (98-107); CREATININE FOR GFR 0.64 MG/DL (0.70-1.30); GLOMERULAR FILTRATION RATE > 60.0 (>60); GLUCOSE, FASTING 93 MG/DL (70-105); POTASSIUM SERUM 3.8 MEQ/L (3.5-5.1); SODIUM LEVEL 141 MEQ/L (136-145); TOTAL PROTEIN 6.7 GM/DL (6.4-8.2)
[2016-11-15] MEDS: SENOKOT S TAB PO SCH ×2 (08:05→20:11)
[2016-11-15] MEDS: PANTOPRAZOLE 40MG TAB (PROTONIX) PO SCH (08:05)
[2016-11-15] MEDS: ACETAMINOPHEN TAB 650MG DOSE (2X325MG) PO PRN ×3 (08:06→22:26)
[2016-11-15] MEDS ORDERED: diphenhydrAMINE 12.5MG/5ML ELIXIR UDC PO ONE (09:15)
[2016-11-15] MEDS ORDERED: HYDROmorphone 2 MG TAB PO ONE (09:15)
--- NOTE | 2016-11-15 09:19 | ECGEPIP ---
Stationary ECG Study [facility] - ED Test Date: 2016-11-14 Pat Name: CEFERINO RAMIREZ Department: Room: - Gender: M Program Services Assistant: ct : 1990 Requested By: Rosamaria Heredia Order Number: [id number] Reading MD: Rosamaria Heredia Measurements Intervals [place] Rate: 84 P: 48 [place]: 153 QRS: 10 QRSD: 95 T: 17 QT: 343 QTc: 406 Interpretive Statements SINUS RHYTHM VOLTAGE CRITERIA FOR [facility] NO PRIOR FOR COMPARISON Electronically Signed On 11-15-2016 9:18:48 EST by Rosamaria Heredia
[2016-11-15] MEDS: HYDROmorphone HCL 1 MG/ML SYRINGE (J1170) IV PRN (10:10)
--- NOTE | 2016-11-15 10:34 | IPNPDOC ---
Assessment/Plan Date Seen The patient was seen on 11/15/16. Problems Problems: (1) Sickle cell crisis Status: Acute Problem Text: * pain is still not controlled, will change dilaudid order set from narcotic naive to dependent * he states his tolerance to narcotics is higher because he frequently takes narcotics for his sickle cell even though he is not normally on anything for pain at home * will monitor his respiratory status in PCU and continue to monitor him on tele * hg dropped slightly from admission but likely due to dilutional effect * haptoglobin pending * retic count elevated Plan / VTE VTE Prophylaxis Ordered?: Yes Subjective Review of Systems CC/HPI The patient is a 26-year-old male admitted with a reason for visit of Sickle Cell Crisis. Events since last encounter pt seen and examined, complaining of generalized pain, started with his left arm and shoulder and now all over, he states the morphine an dose of Dilaudid he received so far were ineffective, he has not been able to sleep, he was also nauseated and had one episode of vomiting. Objective Physical Examination General Exam: Positive: Moderate Distress Eye Exam: Positive: Conjunctiva & lids normal, PERRLA Chest Exam: Positive: Clear to auscultation, Normal air movement Heart Exam: Positive: Normal S1, Normal S2, Rate Normal Abdomen Exam: Positive: Normal bowel sounds, Soft, Negative: Hepatospenomegaly, Tenderness Extremity Exam: Positive: Normal pulses, Negative: Clubbing, Cyanosis, Edema Vital Signs/I&O Vital Signs Date Time Temp Pulse Resp B/P Pulse Ox O2 Delivery O2 Flow Rate FiO2 11/15/16 10:10 20 Nasal Cannula 2.0 11/15/16 06:55 99 11/15/16 04:00 97.5 85 108/70 I&O- Last 24 Hours up to 6 AM 11/15/16 05:59 Intake Total 745 ml Output Total 1550 ml Balance -805 ml Laboratory Data Labs 24H Laboratory Tests 2 11/14/16 13:15: Direct Bilirubin 0.4H, Ferritin 1095H, Folate 13.9, Iron Level 98, Lactate Dehydrogenase 245H, Total Bilirubin 1.3H, Total Iron Binding Capacity 353, Transferrin % Saturation 27.8, Vitamin B12 Level 473 11/14/16 13:24: Absolute Reticulocyte Count 246H, Anion Gap 6L, Anisocytosis 1+, White Blood Count 6.4, Red Blood Count 3.43L, Hemoglobin 10.9L, Hematocrit 32.0L, Mean Corpuscular Volume 93.3, Mean Corpuscular Hemoglobin 31.6, Mean Corpuscular Hemoglobin Concent 33.9, Red Cell Distribution Width 16.7H, Platelet Count 412, Neutrophils (%) (Auto) 50.8, Lymphocytes (%) (Auto) 34.3, Monocytes (%) (Auto) 9.2H, Eosinophils (%) (Auto) 2.1, Basophils (%) (Auto) 0.7, Neutrophils # (Auto ) 3.3, Lymphocytes # (Auto) 2.2, Monocytes # (Auto) 0.6, Eosinophils # (Auto) 0.1, Basophils # (Auto) 0.0, Blood Urea Nitrogen 6L, Creatinine 0.73, Sodium Level 143, Potassium Level 4.0, Chloride Level 109H, Carbon Dioxide Level 28, Calcium Level 8.9, Total Creatine Kinase 47, Creatine Kinase MB 1.0, Creatine Kinase MB Relative Index 2.12, Glomerular Filtration Rate > 60.0, Garcia-Optima Bodies 1+, Large Unclassified Cells # 0.2, Large Unclassified Cells % 3.0, Percent Reticulocyte Count 7.20H, Platelet Estimate NORMAL, Poikilocytosis 1+, Polychromasia 1+, Reticulocyte Hgb Content (CHr) 31.6, Sickle Cells 3+, Troponin I < 0.02 11/14/16 18:19: Total Creatine Kinase 52, Creatine Kinase MB 1.0, Creatine Kinase MB Relative Index 1.92, Troponin I < 0.02 11/15/16 04:37: Total Bilirubin 1.1H, Absolute Reticulocyte Count 251H, Anion Gap 5L, White Blood Count 11.2H, Red Blood Count 2.91L, Hemoglobin 9.2L, Hematocrit 27.7L, Mean Corpuscular Volume 95.1, Mean Corpuscular Hemoglobin 31.6, Mean Corpuscular Hemoglobin Concent 33.2, Red Cell Distribution Width 17.0H, Platelet Count 361, Neutrophils (%) (Auto) 49.6, Lymphocytes (%) (Auto) 34.9, Monocytes (%) (Auto) 9.8H, Eosinophils (%) (Auto) 2.8, Basophils (%) (Auto) 0.4 , Neutrophils # (Auto) 5.6, Lymphocytes # (Auto) 4.2, Monocytes # (Auto) 1.1H, Eosinophils # (Auto) 0.3, Basophils # (Auto) 0.0, Blood Urea Nitrogen 5L, Creatinine 0.64L, Sodium Level 141, Potassium Level 3.8, Chloride Level 107, Carbon Dioxide Level 29, Calcium Level 8.1L, Total Creatine Kinase 57, Creatine Kinase MB 1.0, Creatine Kinase MB Relative Index 1.75, Glomerular Filtration Rate > 60.0, Large Unclassified Cells # 0.3, Large Unclassified Cells % 2.6, Percent Reticulocyte Count 8.60H, Reticulocyte Hgb Content (CHr) 32.8, Troponin I < 0.02, Aspartate Amino Transf (AST/SGOT) 17, Alanine Aminotransferase (ALT/ SGPT) 22, Alkaline Phosphatase 60, Total Protein 6.7, Albumin 4.0, Albumin/ Globulin Ratio 1.48, Magnesium Level 2.0 11/15/16 05:20: Urine Amorphous Sediment , Urine Appearance CLEAR, Urine Color STRAW, Urine pH 6.0, Urine Specific Kathleen 1.005, Urine Protein NEGATIVE, Urine Glucose (UA) NEGATIVE, Urine Ketones NEGATIVE, Urine Urobilinogen 0.2, Urine Bilirubin NEGATIVE, Urine Leukocyte Esterase NEGATIVE, Urine Bacteria (Auto) NEGATIVE, Urine Blood NEGATIVE, Urine Calcium Carbonate Cryst(Auto) , Urine Calcium Oxalate Cryst (Auto) , Urine Calcium Phosphate Ritu (Auto) , Urine Cellular Casts , Urine Cystine Crystals , Urine Granular Casts (Auto) , Urine Hyaline Casts (Auto) 0, Urine Leucine Crystals , Urine Mucus (Auto) , Urine Nitrite NEGATIVE, Urine Oval Fat Bodies (Auto) , Urine RBC (Auto) 2, Urine Renal Epithelial Cells , Urine Sperm (Auto) , Urine Squamous Epithelial Cells 0, Urine Transitional Epithelial Cells , Urine Trichomonas (Auto) , Urine Triple Phosphate Cryst (Auto) , Urine Tyrosine Crystals , Urine Uric Acid Crystals ( Auto) , Urine WBC (Auto) 0, Urine Waxy Casts (Auto) , Urine Yeast-Like Cells ( Auto) CBC/BMP Laboratory Tests 11/14/16 13:24 Calcium Level 8.9, Total Creatine Kinase 47, Red Blood Count 3.43 L, Mean Corpuscular Volume 93.3, Mean Corpuscular Hemoglobin 31.6, Mean Corpuscular Hemoglobin Concent 33.9, Red Cell Distribution Width 16.7 H, Neutrophils (%) ( Auto) 50.8, Lymphocytes (%) (Auto) 34.3, Monocytes (%) (Auto) 9.2 H, Eosinophils (%) (Auto) 2.1, Basophils (%) (Auto) 0.7, Neutrophils # (Auto) 3.3, Lymphocytes # (Auto) 2.2, Monocytes # (Auto) 0.6, Eosinophils # (Auto) 0.1, Basophils # (Auto) 0.0 11/14/16 18:19 11/15/16 00:16 11/15/16 04:37 Calcium Level 8.1 L, Total Creatine Kinase 57, Red Blood Count 2.91 L, Mean Corpuscular Volume 95.1, Mean Corpuscular Hemoglobin 31.6, Mean Corpuscular Hemoglobin Concent 33.2, Red Cell Distribution Width 17.0 H, Neutrophils (%) ( Auto) 49.6, Lymphocytes (%) (Auto) 34.9, Monocytes (%) (Auto) 9.8 H, Eosinophils (%) (Auto) 2.8, Basophils (%) (Auto) 0.4, Neutrophils # (Auto) 5.6, Lymphocytes # (Auto) 4.2, Monocytes # (Auto) 1.1 H, Eosinophils # (Auto) 0.3, Basophils # (Auto) 0.0, Aspartate Amino Transf (AST/SGOT) 17, Alanine Aminotransferase (ALT/SGPT) 22, Alkaline Phosphatase 60, Total Bilirubin 1.1 H, Total Protein 6.7, Albumin 4.0 Microbiology Microbiology 11/14/16 Blood Culture, Received Pending 11/15/16 Urine Culture, Received Pending MYKEL SMTIH DO Nov 15, 2016 10:34
[2016-11-15] MEDS ORDERED: NALOXONE INJ 0.4 MG/1 ML VIAL (J2310) IV PRN (10:45)
[2016-11-15] MEDS ORDERED: SLF 3 ML SYR IV PRN (13:00)
[2016-11-15] MEDS: SLF 3 ML SYR IV SCH ×2 (14:00→20:10)
--- NOTE | 2016-11-15 18:30 | ECGEPIP ---
Stationary ECG Study [facility] Test Date: 2016-11-15 Pat Name: CEFERINO RAMIREZ Department: Room: [place] [address] Gender: M Gear Roller: GENE : 1990 Requested By: ADRIANE ALONSO Order Number: [id number] Reading MD: Stephanie Wright Measurements Intervals [place] Rate: 63 P: 42 OR: 167 QRS: 4 QRSD: 109 T: 8 QT: 391 QTc: 402 Interpretive Statements SINUS RHYTHM VOLTAGE CRITERIA FOR LVH NO CHANGE SINCE 11/14/16 Electronically Signed On 11-15-2016 18:30:18 EST by Stephanie Wright
[2016-11-16] VITALS: O2SAT 93
[2016-11-16] MEDS: HYDROmorphone HCL 1 MG/ML SYRINGE (J1170) IV PRN ×3 (00:18→07:25)
[2016-11-16 04:00] VITALS: BP 101/51; O2SAT 94
[2016-11-16] MEDS: SLF 3 ML SYR IV SCH (04:02)
[2016-11-16 06:06] LABS: BASO % 0.5 % (0.0-1.0); EOS # 0.2 K/mm3 (0.0-0.50); EOS % 1.7 % (0.0-3.0); LARGE UNSTAINED CELL # 0.3 K/mm3 (0.0-0.4); LARGE UNSTAINED CELL % 3.1 % (0.0-4.0); LYMPH # 3.4 K/mm3 (1.5-6.5); LYMPH % 33.1 % (24.0-44.0); MEAN CORPUSCULAR HEMOGLOBIN 31.9 pg (27.0-33.0); MEAN CORPUSCULAR HGB CONC 33.7 g/dl (32.0-36.5); MEAN CORPUSCULAR VOLUME 94.6 fl (80.0-96.0); MONO # 0.9 K/mm3 (0.0-0.8); MONO % 8.6 % (0.0-5.0); NEUTROPHILS # 5.4 K/mm3 (1.8-7.7); PLATELET COUNT, AUTOMATED 366 k/mm3 (150-450); RED CELL DISTRIBUTION WIDTH 17.2 % (11.5-14.5); RETIC HEMOGLOBIN CONTENT CHr 32.6 PG (24-36); RETICULOCYTE ABSOLUTE ADVIA212 224 x10(9)/L (17-77); WHITE BLOOD COUNT 10.2 K/mm3 (4.0-10.0)
[2016-11-16 06:14] LABS: ALBUMIN 4.4 GM/DL (3.2-5.2); ALBUMIN/GLOBULIN RATIO 1.33 (1.00-1.93); ALKALINE PHOSPHATASE 58 U/L (45-117); ALT/SGPT 14 U/L (12-78); ANION GAP 7 MEQ/L (8-16); AST/SGOT 17 U/L (15-37); BILIRUBIN,TOTAL 2.1 MG/DL (0.2-1.0); BLOOD UREA NITROGEN 6 MG/DL (7-18); CALCIUM LEVEL 8.5 MG/DL (8.5-10.1); CARBON DIOXIDE LEVEL 29 MEQ/L (21-32); CHLORIDE LEVEL 104 MEQ/L (98-107); CREATININE FOR GFR 0.67 MG/DL (0.70-1.30); GLOMERULAR FILTRATION RATE > 60.0 (>60); GLUCOSE, FASTING 96 MG/DL (70-105); MAGNESIUM LEVEL 2.3 MG/DL (1.8-2.4); POTASSIUM SERUM 3.5 MEQ/L (3.5-5.1); SODIUM LEVEL 140 MEQ/L (136-145); TOTAL PROTEIN 7.7 GM/DL (6.4-8.2)
[2016-11-16] MEDS: PANTOPRAZOLE 40MG TAB (PROTONIX) PO SCH (07:24)
[2016-11-16] MEDS: SENOKOT S TAB PO SCH (07:24)
[2016-11-16 08:00] VITALS: BP 99/54
[2016-11-16] MEDS ORDERED: NORC10TA2 PO (09:16)
[2016-11-16] MEDS ORDERED: ATIV1TAB7 PO (09:37)
[2016-11-16] MEDS ORDERED: FOLI400T PO (09:41)
[2016-11-16] MEDS: ACETAMINOPHEN TAB 650MG DOSE (2X325MG) PO PRN (10:32)
--- NOTE | 2016-11-16 21:09 | EDDOCDS ---
Nurse's Notes [facility] Name: Aureliano Crockett Age: 26 yrs Sex: Male : 1990 Arrival Date: 11/14/2016 Time: 12:26 Bed 9 Private MD: NO PRIMARY PHYSICIAN, . Diagnosis: Other sickle-cell disorders with crisis;Chest pain, unspecified Presentation: 11/14 12:39 Presenting complaint: Patient states: Extreme pain in left arm, shoulder radiating down jo3 to hand. Also reporting left anterior chest pain. Has sickle cell. 12:45 Adult Sepsis Screening: Adult Sepsis Screening: Patient's respiratory rate is less than jo3 22. Systolic blood pressure is greater than 100. Patient has a qSOFA score of 0- Negative Sepsis Screen. Suicide/Homicide risk assessment- the patient denies having any suicidal and/or homicidal ideations and does not present with any other emotional, behavioral or mental health complaints. Status: Patient is not a sales service executive or dependent. Transition of care: patient was not received from another setting of care. 12:45 Acuity: OVIDIO Level 3 jo3 12:45 Acuity: OVIDIO Level 2 jo3 12:45 Method Of Arrival: Walkin/Carried/Asstd jo3 Triage Assessment: 12:47 General: Appears uncomfortable, Behavior is appropriate for age, cooperative. Pain: jo3 Location: left shoulder, arm and left chest Pain. HIV screening NA for this visit Offered previously. Neurological: Level of Consciousness is awake, alert, Oriented to person, place, time. Respiratory: Airway is patent Respiratory effort is even, unlabored. Historical: - Allergies: no known allergies; - Home Meds: 1. Folic Acid Unknown Oral once daily 2. ibuprofen 800 mg Oral tab 1 tab 3 times per day - PMHx: heart valve regurgitation; Heart Murmur; Sickle Cell; - PSHx: none; - Social history: Smoking status: Patient uses tobacco products, light tobacco smoker. No barriers to communication noted, The patient speaks fluent Togolese, Speaks appropriately for age. - Family history: Not pertinent. - : The pt / caregiver states he / she is not on anticoagulants. Home medication list is obtained from the patient. - Exposure Risk Screening:: None identified. Screenin:26 Screening information is obtained from the patient. Fall risk: No risks identified. ms18 Assistance ADL's: requires no assistance with activities of daily living. Abuse/DV Screen: The patient / caregiver reports he/she is: not in a situation that causes fear, pain or injury. Nutritional screening: No deficits noted. home support is adequate. 17:04 Advance Directives: There is no living will. ms18 Assessment: 13:26 General: Appears in no apparent distress, uncomfortable, Behavior is appropriate for ms18 age, cooperative. Pain: Location: left scapular area, anterior aspect of left upper chest, left breast and left arm Pain currently is 9 out of 10 on a pain scale. Neurological: Level of Consciousness is awake, alert, obeys commands, Oriented to person, place, time, Moves all extremities. Speech is normal. Respiratory: Airway is patent Respiratory effort is even, unlabored. GI: Abdomen is non- distended. Derm: Skin is pink, warm & dry. normal. Musculoskeletal: Range of motion intact in all extremities. No deformity noted Reports pain in back, chest and left arm since 3 days ago. 14:25 General: Appears in no apparent distress, uncomfortable, Behavior is appropriate for ms18 age, cooperative. Pain: Pain currently is 9 out of 10 on a pain scale. Neurological: Level of Consciousness is awake, alert, obeys commands, Oriented to person, place, time. Cardiovascular: Rhythm is sinus rhythm. Respiratory: Airway is patent Respiratory effort is even, unlabored. Derm: Skin is pink, warm & dry. normal. 15:16 General: Appears in no apparent distress, Hospitalist in the room with pt at this time. ms18 Will continue to monitor pt. Neurological: Level of Consciousness is awake, alert, obeys commands. Respiratory: Airway is patent Respiratory effort is even, unlabored. Derm: Skin is pink, warm & dry. normal. 16:58 General: Appears in no apparent distress, Behavior is appropriate for age, cooperative, ms18 PT states that his pain has not changed at all. PT rates 9/10 and is currently eating fast food brought in by a family member. . General: Room number received at this time, will send SBAR. Pain: Pain currently is 9 out of 10 on a pain scale. Neurological: Level of Consciousness is awake, alert, obeys commands, Oriented to person, place, time. Respiratory: Airway is patent Respiratory effort is even, unlabored. Derm: Skin is pink, warm & dry. 17:21 General: Pt and family member have asked several times about pain medication. . ms18 17:34 General: Appears in no apparent distress, Called PCU, at first was told that the pt ms18 could come upstairs to his bed assignment. PCU called back and stated that the room was dirty and would have to wait until the room with cleaned. Pt informed of this. Neurological: Level of Consciousness is awake, alert, obeys commands, Oriented to person, place, time. Cardiovascular: Rhythm is sinus rhythm. Respiratory: No deficits noted. Derm: Skin is pink, warm & dry. normal. 18:32 General: Appears in no apparent distress, Awaiting PCU to call that the bed is clean ms18 and ready. Will continue to monitor pt. Respiratory: No deficits noted. Derm: Skin is pink, warm & dry. normal. 19:02 General: Verbal report given by Aleena Berumen RN. Assumed care of patient at this time.. kas2 19:21 General: Appears in no apparent distress, uncomfortable, well nourished, well groomed, kas2 Behavior is appropriate for age, cooperative. Pain: Location: left arm and chest and back and left breast and anterior aspect of left upper chest and left scapular area Pain currently is 6 out of 10 on a pain scale. Neurological: Level of Consciousness is awake, alert, obeys commands, Oriented to person, place, time. Cardiovascular: Capillary refill < 3 seconds Heart tones S1 S2 present Rhythm is sinus tachycardia No ectopy. Respiratory: No deficits noted. Airway is patent Respiratory effort is even, unlabored, Respiratory pattern is regular, symmetrical, Breath sounds are clear bilaterally. GI: Abdomen is flat, non- distended Bowel sounds present X 4 quads. Abd is soft and non tender X 4 quads. Derm: Skin is intact, Skin is dry, Skin is pink, warm & dry. Skin temperature is warm. Musculoskeletal: Range of motion intact in all extremities. No deformity noted. 19:39 General: Patient is very anxious and complaining of pain running down his left arm kas2 8/10. Patient is requesting more pain meds and ativan. Hospitalist called.. 19:43 General: Resident from hospitalist team called back and RN let him know patients kas2 concerns and wishes and he said he would call Dr. Bell and call RN back in ED.. 19:56 General: RN called Kyara RN on PCU and let her know that we had not heard back from [facility] Dr. Bell on patients pain meds and order for ativan. . Vital Signs: 12:27 BP 148 / 81; Pulse 92; Resp 18; Temp 98.9(O); Pulse Ox 98% on R/A; Weight 63.5 kg (R); elp Height 6 ft. 2 in. (187.96 cm) (R); Pain 9/10; 12:58 BP 136 / 79 (auto/); ms18 12:59 Pulse 88 MON; Pulse Ox 98% ; ms18 13:13 BP 135 / 70 (auto/); ms18 13:14 Pulse 96 MON; Pulse Ox 95% ; ms18 13:28 BP 122 / 67 (auto/); ms18 13:32 Pulse 92 MON; Pulse Ox 96% ; ms18 13:43 BP 124 / 65 (auto/); ms18 13:44 Pulse 92 MON; Pulse Ox 94% ; ms18 13:58 BP 136 / 72 (auto/); ms18 13:59 Pulse 82 MON; Pulse Ox 95% ; ms18 14:13 BP 133 / 60 (auto/); ms18 14:13 Pulse 100 MON; Pulse Ox 95% ; ms18 14:28 BP 140 / 66 (auto/); ms18 14:29 Pulse 84 MON; Pulse Ox 96% ; ms18 14:43 BP 142 / 63 (auto/); ms18 14:44 Pulse 82 MON; Pulse Ox 97% ; ms18 14:58 BP 119 / 57 (auto/); ms18 14:59 Pulse 82 MON; Pulse Ox 98% ; ms18 15:14 BP 135 / 62 (auto/); ms18 15:14 Pulse 86 MON; Pulse Ox 100% ; ms18 15:32 BP 137 / 67 (auto/); ms18 15:33 Pulse 90 MON; Pulse Ox 100% ; ms18 17:04 BP 154 / 74; Pulse 93; Resp 18; Temp 99.9(TE); Pulse Ox 98% on R/A; Pain 9/10; ms18 17:04 BP 154 / 74 (auto/); kas2 17:04 Pulse 98 MON; Pulse Ox 98% ; kas2 17:28 Pulse 76 MON; Pulse Ox 99% ; ms18 17:29 BP 138 / 65 (auto/); Resp 20; ms18 19:30 BP 157 / 70; Pulse 100; Resp 25; Temp 97.9(O); Pulse Ox 97% on R/A; Pain 9/10; jmv 12:27 Body Mass Index 17.97 (63.50 kg, 187.96 cm) elp Vitals: 12:27 Log In Time: November 14, 2016 at 12:25. elp ED Course: 12:26 Patient visited by Bindu Cee PCA. elp 12:26 Patient moved to Waiting elp 12:27 NO PRIMARY PHYSICIAN, . is Private Physician. elp 12:27 Patient visited by Bindu Cee PCA. elp 12:28 Patient visited by Bindu Cee PCA. elp 12:28 Patient moved to Pre RCE elp 12:41 Patient moved to PD2 / jo3 12:46 Triage Initiated jo3 12:48 Patient visited by Evita Teran RN. jo3 12:51 EKG done. (by ED staff). Reviewed by Rosamaria Heredia MD. ct3 12:52 Patient visited by Onelia Wagner PCA. ct3 12:56 Aleena Malhotra,RN is Primary Nurse. ms18 12:56 Patient moved to 9 ms18 12:59 Accompanied by Family Member, Patient has correct armband on for positive ct3 identification. Placed in gown. Bed in low position. Call light in reach. Side rails up X2. property assessment monitor on. Pulse ox on. NIBP on. 13:00 Patient visited by Onelia Wagner PCA. ct3 13:01 Naeem Molina MD is Attending Physician. br1 13:19 Patient visited by Naeem Molina MD. br1 13:25 Patient visited by Aleena Malhotra,RN. ms18 13:25 Reticulocyte Count Sent. ms18 13:25 Basic Metabolic Profile Sent. ms18 13:25 CBC with Diff Sent. ms18 13:26 The patient / caregiver is instructed regarding the plan of care and ED course. ms18 Property :Personal belongings accompany Pt. 13:26 Cardiac Injury Profile Sent. ms18 13:26 Troponin Sent. ms18 13:26 Inserted saline lock: 18 gauge in left antecubital area and blood collected. The ms18 patient tolerated the procedure well. 13:39 Patient visited by Aleena Malhotra RN. ms18 14:07 Chest, 2 View (pa\E\lat) Returned. EDMS 14:24 Patient visited by Aleena Malhotra RN. ms18 15:01 Patient visited by Naeem Molina MD. br1 15:03 Cordell Bell is Hospitalizing Provider. br1 16:00 [facility] Payment Agreement was scanned into Med[employer] DX and attached to record. zo 16:05 Patient name changed from Aureliano\S\\S\Wellington\S\ to Aureliano\S\ \S\Wellington. EDMS 17:04 No procedures done that require assistance. ms18 18:32 Patient visited by Aleena Malhotra RN. ms18 18:59 Jannie Malhotra RN is Primary Nurse. kas2 19:02 Patient visited by Jannie Malhotra RN. kas2 19:25 Patient visited by Jannie Malhotra RN. kas2 19:30 Patient visited by Christopher Holland PCA. jmv 19:44 Patient visited by Jannie Malhotra RN. kas2 19:52 Patient visited by Jannie Malhotra RN. kas2 19:55 Patient visited by Jannie Malhotra RN. kas2 19:57 Patient visited by Jannie Malhotra RN. kas2 02/03 13:46 T-Sheet-- Draft Copy was scanned into Med[employer] DX and attached to record. gb 13:47 ECG/EKG was scanned into Med[employer] DX and attached to record. gb Administered Medications: 11/14 13:39 Drug: NS 0.9% 1000 ml [sodium chloride 0.9 % intravenous solution] Route: IV; Rate: ms18 bolus; Site: left antecubital; 17:07 Follow up: IV Status: Completed infusion; IV Intake: 1000ml ms18 13:39 Drug: morphine 4 mg [morphine 4 mg/mL intravenous cartridge (1 mL)] Route: IVP; Site: ms18 left antecubital; 14:19 Follow up: Response: Pain is unchanged, physician notified ms18 13:39 Drug: Aspirin 324 mg [aspirin 81 mg chewable tablet (4 tabs)] Route: PO; ms18 14:19 Follow up: Response: No Adverse Reaction ms18 14:25 Drug: morphine 4 mg [morphine 4 mg/mL intravenous cartridge (1 mL)] Route: IVP; Site: ms18 left antecubital; 17:07 Follow up: Response: No Adverse Reaction; Pain is unchanged, physician notified ms18 15:36 Drug: morphine 4 mg [morphine 4 mg/mL intravenous cartridge (1 mL)] Route: IVP; Site: ms18 left antecubital; 17:08 Follow up: Response: No Adverse Reaction; Pain is unchanged, physician notified ms18 17:21 Drug: Dilaudid - HYDROmorphone 1 mg [hydromorphone 1 mg/mL injection syringe (1 mL)] ms18 Route: IVP; Site: left antecubital; Intake: 17:07 IV: 1000.00ml; Total: 1000.00ml. ms18 Order Results: Lab Order: Basic Metabolic Profile; SPEC'M 11/14/16 13:24 Test: GLUCOSE, FASTING; Value: 91; Range: 70-105; Units: MG/DL; Status: F Test: BLOOD UREA NITROGEN; Value: 6; Range: 7-18; Abnormal: Below low normal; Units: MG/DL; Status: F Test: CREATININE FOR GFR; Value: 0.73; Range: 0.70-1.30; Units: MG/DL; Status: F Test: GLOMERULAR FILTRATION RATE; Value: > 60.0; Range: >60; Status: F Test: SODIUM LEVEL; Value: 143; Range: 136-145; Units: MEQ/L; Status: F Test: POTASSIUM SERUM; Value: 4.0; Range: 3.5-5.1; Units: MEQ/L; Status: F Test: CHLORIDE LEVEL; Value: 109; Range: 98-107; Abnormal: Above high normal; Units: MEQ/L; Status: F Test: CARBON DIOXIDE LEVEL; Value: 28; Range: 21-32; Units: MEQ/L; Status: F Test: ANION GAP; Value: 6; Range: 8-16; Abnormal: Below low normal; Units: MEQ/L; Status: F Test: CALCIUM LEVEL; Value: 8.9; Range: 8.5-10.1; Units: MG/DL; Status: F Test Note: ; Units are mL/min/1.73 m2 Chronic Kidney Disease Staging per NKF: Stage I & II GFR >=60 Normal to Mildly Decreased Stage III GFR 30-59 Moderately Decreased Stage IV GFR 15-29 Severely Decreased Stage V GFR <15 Very Little GFR Left ESRD GFR <15 on SUPER[employer]OR [employer] Lab Order: CBC with Diff; DELBERT'Michael 11/14/16 13:24 Test: WHITE BLOOD COUNT; Value: 6.4; Range: 4.0-10.0; Units: K/mm3; Status: F Test: RED BLOOD COUNT; Value: 3.43; Range: 4.30-6.10; Abnormal: Below low normal; Units: M/mm3; Status: F Test: HEMOGLOBIN; Value: 10.9; Range: 14.0-18.0; Abnormal: Below low normal; Units: g/dl; Status: F Test: HEMATOCRIT; Value: 32.0; Range: 42.0-52.0; Abnormal: Below low normal; Units: %; Status: F Test: MEAN CORPUSCULAR VOLUME; Value: 93.3; Range: 80.0-96.0; Units: fl; Status: F Test: MEAN CORPUSCULAR HEMOGLOBIN; Value: 31.6; Range: 27.0-33.0; Units: pg; Status: F Test: MEAN CORPUSCULAR HGB CONC; Value: 33.9; Range: 32.0-36.5; Units: g/dl; Status: F Test: RED CELL DISTRIBUTION WIDTH; Value: 16.7; Range: 11.5-14.5; Abnormal: Above high normal; Units: %; Status: F Test: PLATELET COUNT, AUTOMATED; Value: 412; Range: 150-450; Units: k/mm3; Status: F Test: NEUTROPHILS %; Value: 50.8; Range: 36.0-66.0; Units: %; Status: F Test: LYMPH %; Value: 34.3; Range: 24.0-44.0; Units: %; Status: F Test: MONO %; Value: 9.2; Range: 0.0-5.0; Abnormal: Above high normal; Units: %; Status: F Test: EOS %; Value: 2.1; Range: 0.0-3.0; Units: %; Status: F Test: BASO %; Value: 0.7; Range: 0.0-1.0; Units: %; Status: F Test: LARGE UNSTAINED CELL %; Value: 3.0; Range: 0.0-4.0; Units: %; Status: F Test: NEUTROPHILS #; Value: 3.3; Range: 1.8-7.7; Units: K/mm3; Status: F Test: LYMPH #; Value: 2.2; Range: 1.5-6.5; Units: K/mm3; Status: F Test: MONO #; Value: 0.6; Range: 0.0-0.8; Units: K/mm3; Status: F Test: EOS #; Value: 0.1; Range: 0.0-0.50; Units: K/mm3; Status: F Test: BASO #; Value: 0.0; Range: 0.0-0.2; Units: K/mm3; Status: F Test: LARGE UNSTAINED CELL #; Value: 0.2; Range: 0.0-0.4; Units: K/mm3; Status: F Lab Order: Cardiac Injury Profile; [facility]' 11/14/16 13:24 Test: CPK CREATINE PHOSPHOKINASE; Value: 47; Range: 39-308; Units: U/L; Status: F Test: CK-MB VALUE MASS; Value: 1.0; Range: 0.0-3.6; Units: NG/ML; Status: F Test: MB/CK RELATIVE INDEX; Value: 2.12; Range: < OR =4; Status: F Test Note: ; DIAGNOSIS CRITERIA MMB ng/ml Relative Index (RI) NON-AMI < or = 5 N/A GOMEZ ZONE > 5 < or = 4 AMI > 5 > 4 Lab Order: Troponin; SPEC' 11/14/16 13:24 Test: TROPONIN I; Value: < 0.02; Range: < 0.10; Units: NG/ML; Status: F Test Note: ; Troponin I Reference Interval for vLex LOCI: 99th Percentile= 0.00-0.045 ng/ml Risk Stratification: <= 0.10 ng/ml Decreased Risk for Adverse Clinical Events. 0.10-1.50 ng/ml Increased Risk for Adverse Clinical Events. Evaluation of additional criterion and/or repeat testing in 2-6 hours is suggested to rule out myocardial damage. >= 1.50 ng/ml Indicative of Myocardial Injury. Lab Order: Reticulocyte Count; [facility] 11/14/16 13:24 Test: RETICULOCYTE % [id number]; Value: 7.20; Range: 0.5-1.5; Abnormal: Above high normal; Units: %; Status: F Test: RETICULOCYTE ABSOLUTE [id number]; Value: 246; Range: 17-77; Abnormal: Above high normal; Units: x10(9)/L; Status: F Test: RETIC HEMOGLOBIN CONTENT CHr; Value: 31.6; Range: 24-36; Units: PG; Status: F Lab Order: CARDIAC INJURY PROFILE; [facility] 18:19 Test: CPK CREATINE PHOSPHOKINASE; Value: 52; Range: 39-308; Units: U/L; Status: F Test: CK-MB VALUE MASS; Value: 1.0; Range: 0.0-3.6; Units: NG/ML; Status: F Test: MB/CK RELATIVE INDEX; Value: 1.92; Range: < OR =4; Status: F Test Note: ; DIAGNOSIS CRITERIA MMB ng/ml Relative Index (RI) NON-AMI < or = 5 N/A GOMEZ ZONE > 5 < or = 4 AMI > 5 > 4 Lab Order: TROPONIN; 11/14/16 18:19 Test: TROPONIN I; Value: < 0.02; Range: < 0.10; Units: NG/ML; Status: F Test Note: ; Troponin I Reference Interval for vLex LOCI: 99th Percentile= 0.00-0.045 ng/ml Risk Stratification: <= 0.10 ng/ml Decreased Risk for Adverse Clinical Events. 0.10-1.50 ng/ml Increased Risk for Adverse Clinical Events. Evaluation of additional criterion and/or repeat testing in 2-6 hours is suggested to rule out myocardial damage. >= 1.50 ng/ml Indicative of Myocardial Injury. Lab Order: TOTAL IRON BINDING CAPACIT; [facility] 13:15 Test: IRON (FE); Value: 98; Range: 65-175; Units: UG/DL; Status: F Test: TOTAL IRON BINDING CAPACITY; Value: 353; Range: 250-450; Units: UG/DL; Status: F Test: PERCENT SATURATION; Value: 27.8; Range: 19.7-37.4; Units: %; Status: F Lab Order: FERRITIN; 11/14/16 13:15 Test: FERRITIN; Value: 1095; Range: 26-388; Abnormal: Above high normal; Units: NG/ML; Status: F Lab Order: VITAMIN B12 LEVEL; 11/14/16 13:15 Test: VITAMIN B12 LEVEL; Value: 473; Range: 247-911; Units: PG/ML; Status: F Test Note: ; VITAMIN B12 NORMAL RANGE NORMAL 247 - 911 PG/ML INDETERMINATE 211 - 246 PG/ML DEFICIENT LESS THAN 211 PG/ML Lab Order: FOLATE; 11/14/16 13:15 Test: FOLATE; Value: 13.9; Range: >5.4; Units: NG/ML; Status: F Test Note: ; FOLATE NORMAL RANGE NORMAL GREATER THAN 5.4 NG/ML INDETERMINATE 3.4-5.4 NG/ML DEFICIENT LESS THAN 3.4 NG/ML Lab Order: LACTATE DEHYDROGENASE; 11/14/16 13:15 Test: LDH LACTATE DEHYDROGENASE; Value: 245; Range: 87-241; Abnormal: Above high normal; Units: U/L; Status: F Lab Order: BILIRUBIN,TOTAL; 11/14/16 13:15 Test: BILIRUBIN,TOTAL; Value: 1.3; Range: 0.2-1.0; Abnormal: Above high normal; Units: MG/DL; Status: F Lab Order: BILIRUBIN,DIRECT; 11/14/16 13:15 Test: BILIRUBIN,DIRECT; Value: 0.4; Range: 0.0-0.2; Abnormal: Above high normal; Units: MG/DL; Status: F Lab Order: HEMOGLOBIN & HEMATOCRIT; 11/14/16 18:19 Test: HEMOGLOBIN; Value: 10.3; Range: 14.0-18.0; Abnormal: Below low normal; Units: g/dl; Status: F Test: HEMATOCRIT; Value: 31.4; Range: 42.0-52.0; Abnormal: Below low normal; Units: %; Status: F Lab Order: DIRECT MEGAN; 11/14/16 13:15 Test: ELEANOR RESULT CALC; Value: NEGATIVE; Status: F Lab Order: RBC MORPH PROF NO CHARGE; SPEC'M 11/14/16 13:24 Test: PLATELET ESTIMATE; Range: NORMAL; Status: I Test: POLYCHROMASIA; Value: 1+; Status: F Test: POIKILOCYTOSIS; Value: 1+; Status: F Test: ANISOCYTOSIS; Value: 1+; Status: F Test: BEY-JOLLY BODIES; Value: 1+; Status: F Test: SICKLE CELLS; Value: 3+; Status: F Test: PLATELET ESTIMATE; Value: NORMAL; Range: NORMAL; Status: F Radiology Order: Chest, 2 View (pa\E\lat) Test: Chest, 2 View (pa\E\lat) REASON FOR EXAMINATION: Chest Pain; Chest x-ray: Two views.; ; History: Chest pain. .; ; Comparison study: No comparison study. .; ; Findings: The lungs are well inflated and free of infiltrate. The pleural; angles are sharp. The heart size is normal. Pulmonary vasculature is not; increased. No significant bony abnormality is seen. EKG monitoring electrodes; overlie the chest.; ; Impression:; ; Negative chest x-ray.; ; ; Signed by; Gennaro Carranza MD 11/14/2016 01:18 P; Outcome: 15:03 Decision to Hospitalize by Provider. br1 17:04 Discharge Assessment: Patient awake, alert and oriented x 3. No cognitive and/or ms18 functional deficits noted. Patient verbalized understanding of disposition instructions. patient administered narcotics - yes. Patient was admitted to the hospital or transferred to another facility. The following High Risk Discharge criteria are identified: None. Admitted to PCU accompanied by nurse, accompanied by tech, family with patient, via stretcher, with oxygen, on monitor, with chart. Condition: stable. No special radiology studies were completed. Property :Personal belongings accompany Pt. 20:08 Patient left the ED. kas2 Signatures: Dispatcher [employer] EDMS Rani Delgado, Ernst Reg Evita Joaquin,RN RN jo3 Carolee Aguiar Brian, MD MD br1 Onelia Wagner, WIRE LOOP MACHINE OPERATOR WIRE LOOP MACHINE OPERATOR ct3 Bindu Cee, WIRE LOOP MACHINE OPERATOR WIRE LOOP MACHINE OPERATOR elp Aleena Malhotra RN RN ms18 Jannie Malhotra RN RN kas2 Christopher Holland, WIRE LOOP MACHINE OPERATOR WIRE LOOP MACHINE OPERATOR jmv Chart Complete MTDD
--- NOTE | 2016-11-16 21:09 | EDDOCDS ---
Physician Documentation [facility] Name: Aureliano Crockett Age: 26 yrs Sex: Male : 1990 Arrival Date: 11/14/2016 Time: 12:26 Bed 9 Private MD: NO PRIMARY PHYSICIAN, . Disposition: 11/14/16 15:03 Hospitalization ordered by Cordell Bell for Inpatient Admission. Preliminary diagnosis are Other sickle-cell disorders with crisis, Chest pain, unspecified. - Bed requested for PCU. - Status is Inpatient Admission. kas2 - Condition is Stable. - Problem is new. - Symptoms are unchanged. Historical: - Allergies: no known allergies; - Home Meds: 1. Folic Acid Unknown Oral once daily 2. ibuprofen 800 mg Oral tab 1 tab 3 times per day - PMHx: heart valve regurgitation; Heart Murmur; Sickle Cell; - PSHx: none; - Social history: Smoking status: Patient uses tobacco products, light tobacco smoker. No barriers to communication noted, The patient speaks fluent Mongolian, Speaks appropriately for age. - Family history: Not pertinent. - : The pt / caregiver states he / she is not on anticoagulants. Home medication list is obtained from the patient. - Exposure Risk Screening:: None identified. Vital Signs: 11/14 12:27 BP 148 / 81; Pulse 92; Resp 18; Temp 98.9(O); Pulse Ox 98% on R/A; Weight 63.5 kg / elp 139.99 lbs (R); Height 6 ft. 2 in. (187.96 cm) (R); Pain 9/10; 12:58 BP 136 / 79 (auto/); ms18 12:59 Pulse 88 MON; Pulse Ox 98% ; ms18 13:13 BP 135 / 70 (auto/); ms18 13:14 Pulse 96 MON; Pulse Ox 95% ; ms18 13:28 BP 122 / 67 (auto/); ms18 13:32 Pulse 92 MON; Pulse Ox 96% ; ms18 13:43 BP 124 / 65 (auto/); ms18 13:44 Pulse 92 MON; Pulse Ox 94% ; ms18 13:58 BP 136 / 72 (auto/); ms18 13:59 Pulse 82 MON; Pulse Ox 95% ; ms18 14:13 BP 133 / 60 (auto/); ms18 14:13 Pulse 100 MON; Pulse Ox 95% ; ms18 14:28 BP 140 / 66 (auto/); ms18 14:29 Pulse 84 MON; Pulse Ox 96% ; ms18 14:43 BP 142 / 63 (auto/); ms18 14:44 Pulse 82 MON; Pulse Ox 97% ; ms18 14:58 BP 119 / 57 (auto/); ms18 14:59 Pulse 82 MON; Pulse Ox 98% ; ms18 15:14 BP 135 / 62 (auto/); ms18 15:14 Pulse 86 MON; Pulse Ox 100% ; ms18 15:32 BP 137 / 67 (auto/); ms18 15:33 Pulse 90 MON; Pulse Ox 100% ; ms18 17:04 BP 154 / 74; Pulse 93; Resp 18; Temp 99.9(TE); Pulse Ox 98% on R/A; Pain 9/10; ms18 17:04 BP 154 / 74 (auto/); kas2 17:04 Pulse 98 MON; Pulse Ox 98% ; kas2 17:28 Pulse 76 MON; Pulse Ox 99% ; ms18 17:29 BP 138 / 65 (auto/); Resp 20; ms18 19:30 BP 157 / 70; Pulse 100; Resp 25; Temp 97.9(O); Pulse Ox 97% on R/A; Pain 9/10; jmv 12:27 Body Mass Index 17.97 (63.50 kg, 187.96 cm) elp MDM: 12:43 ECG WITH READING ER PHYS+CARDIAG ordered. EDMS 13:02 Transit Specialist/Pulse Ox/q 30 min VS ordered. br1 13:02 IV Saline Lock ordered. br1 13:02 Rhythm Strip to chart ordered. br1 13:02 Undress patient appropriately for examination ordered. br1 13:03 Basic Metabolic Profile Ordered. EDMS 13:03 CBC with Diff Ordered. EDMS 13:03 Cardiac Injury Profile Ordered. EDMS 13:03 Troponin Ordered. EDMS 13:04 Chest, 2 View (pa\E\lat) Ordered. EDMS 13:05 Reticulocyte Count Ordered. EDMS 13:20 NS 0.9% 1000 ml IV at bolus once ordered. br1 13:20 morphine 4 mg IVP once ordered. br1 13:20 Aspirin 324 mg PO once ordered. br1 13:56 CBC with Diff Reviewed. br1 13:56 Reticulocyte Count Reviewed. br1 14:08 Basic Metabolic Profile Reviewed. br1 14:08 Cardiac Injury Profile Reviewed. br1 14:08 Troponin Reviewed. br1 14:08 Chest, 2 View (pa\E\lat) Reviewed. br1 14:10 morphine 4 mg IVP once ordered. br1 14:55 morphine 4 mg IVP once ordered. br1 14:56 BED REQUEST+ADM ordered. EDMS 15:32 Admission / Observation Status ordered. EDMS 15:32 ELECTROCARDIOGRAM ADULT ordered. EDMS 15:32 REGULAR DIET ordered. EDMS 15:33 CARDIAC INJURY PROFILE Ordered. EDMS 15:33 TROPONIN Ordered. EDMS 15:33 URINALYSIS Ordered. EDMS 15:33 IRON (FE) Ordered. EDMS 15:33 TOTAL IRON BINDING CAPACIT Ordered. EDMS 15:33 FERRITIN Ordered. EDMS 15:33 VITAMIN B12 LEVEL Ordered. EDMS 15:33 FOLATE Ordered. EDMS 15:33 HAPTOGLOBIN Ordered. EDMS 15:34 LACTATE DEHYDROGENASE Ordered. EDMS 15:34 BILIRUBIN,TOTAL Ordered. EDMS 15:34 BILIRUBIN,DIRECT Ordered. EDMS 15:35 URINE CULTURE Ordered. EDMS 16:00 Financial registration complete. zo 16:00 [facility] [place] Payment Agreement was scanned into [employer] and attached to record. zo 16:04 HEMOGLOBIN & HEMATOCRIT Ordered. EDMS 16:05 BLOOD CULTURES Ordered. EDMS 16:18 DIRECT MEGAN Ordered. EDMS 16:59 RBC MORPH PROF NO CHARGE Ordered. EDMS 17:13 Dilaudid - HYDROmorphone 1 mg IVP once; hospitalist order ordered. ms18 19:31 CARDIAC INJURY PROFILE Ordered. EDMS 19:32 CARDIAC INJURY PROFILE Ordered. EDMS 19:32 TROPONIN Ordered. EDMS 19:32 TROPONIN Ordered. EDMS 19:32 CBC WITH DIFFERENTIAL Ordered. EDMS 19:32 COMPLETE COMPHRENSIVE METABOLI Ordered. EDMS 19:32 MAGNESIUM LEVEL Ordered. EDMS 19:32 HEMOGLOBIN & HEMATOCRIT Ordered. EDMS 19:32 HEMOGLOBIN & HEMATOCRIT Ordered. EDMS 19:32 HEMOGLOBIN & HEMATOCRIT Ordered. EDMS 19:32 HEMOGLOBIN & HEMATOCRIT Ordered. EDMS 19:32 RETICULOCYTE COUNT Ordered. EDMS 11/15 13:46 T-Sheet-- Draft Copy was scanned into [employer] and attached to record. gb 13:47 ECG/EKG was scanned into [employer] and attached to record. gb Administered Medications: 11/14 13:39 Drug: NS 0.9% 1000 ml [sodium chloride 0.9 % intravenous solution] Route: IV; Rate: ms18 bolus; Site: left antecubital; 17:07 Follow up: IV Status: Completed infusion; IV Intake: 1000ml ms18 13:39 Drug: morphine 4 mg [morphine 4 mg/mL intravenous cartridge (1 mL)] Route: IVP; Site: ms18 left antecubital; 14:19 Follow up: Response: Pain is unchanged, physician notified ms18 13:39 Drug: Aspirin 324 mg [aspirin 81 mg chewable tablet (4 tabs)] Route: PO; ms18 14:19 Follow up: Response: No Adverse Reaction ms18 14:25 Drug: morphine 4 mg [morphine 4 mg/mL intravenous cartridge (1 mL)] Route: IVP; Site: ms18 left antecubital; 17:07 Follow up: Response: No Adverse Reaction; Pain is unchanged, physician notified ms18 15:36 Drug: morphine 4 mg [morphine 4 mg/mL intravenous cartridge (1 mL)] Route: IVP; Site: ms18 left antecubital; 17:08 Follow up: Response: No Adverse Reaction; Pain is unchanged, physician notified ms18 17:21 Drug: Dilaudid - HYDROmorphone 1 mg [hydromorphone 1 mg/mL injection syringe (1 mL)] ms18 Route: IVP; Site: left antecubital; Signatures: [facility] Rani Delgado, Ernst Reg Evita TeranRN RN Carolee Murray Brian, MD MD br1 Aleena Malhotra RN RN ms18 Brijesh Pablo RN RN mts Smith, Kim, RN RN kas2 The chart was reviewed and I authenticate all verbal orders and agree with the evaluation and treatment provided.Corrections: (The following items were deleted from the chart) 16:06 15:33 HEMOGLOBIN & HEMATOCRIT ordered. EDMS EDMS 16:06 15:35 BLOOD CULTURES ordered. EDMS EDMS 16:41 15:32 INDIRECT MEGAN TYPE SPECIFIC ordered. EDMS EDMS 19:36 17:01 RBC MORPH PROF NO CHARGE ordered. EDMS EDMS Attachments: 16:00 [facility] Payment Agreement zo 11/15 13:46 T-Sheet-- Draft Copy gb 13:47 ECG/EKG gb Chart Complete MTDD
--- NOTE | 2016-11-16 21:09 | EDDOCDS ---
Physician Documentation [facility] Name: Aureliano Crockett Age: 26 yrs Sex: Male : 1990 Arrival Date: 11/14/2016 Time: 12:26 Bed 9 Private MD: NO PRIMARY PHYSICIAN, . Disposition: 11/14/16 15:03 Hospitalization ordered by Cordell Bell for Inpatient Admission. Preliminary diagnosis are Other sickle-cell disorders with crisis, Chest pain, unspecified. - Bed requested for PCU. - Status is Inpatient Admission. kas2 - Condition is Stable. - Problem is new. - Symptoms are unchanged. Historical: - Allergies: no known allergies; - Home Meds: 1. Folic Acid Unknown Oral once daily 2. ibuprofen 800 mg Oral tab 1 tab 3 times per day - PMHx: heart valve regurgitation; Heart Murmur; Sickle Cell; - PSHx: none; - Social history: Smoking status: Patient uses tobacco products, light tobacco smoker. No barriers to communication noted, The patient speaks fluent Amharic, Speaks appropriately for age. - Family history: Not pertinent. - : The pt / caregiver states he / she is not on anticoagulants. Home medication list is obtained from the patient. - Exposure Risk Screening:: None identified. Vital Signs: 11/14 12:27 BP 148 / 81; Pulse 92; Resp 18; Temp 98.9(O); Pulse Ox 98% on R/A; Weight 63.5 kg / elp 139.99 lbs (R); Height 6 ft. 2 in. (187.96 cm) (R); Pain 9/10; 12:58 BP 136 / 79 (auto/); ms18 12:59 Pulse 88 MON; Pulse Ox 98% ; ms18 13:13 BP 135 / 70 (auto/); ms18 13:14 Pulse 96 MON; Pulse Ox 95% ; ms18 13:28 BP 122 / 67 (auto/); ms18 13:32 Pulse 92 MON; Pulse Ox 96% ; ms18 13:43 BP 124 / 65 (auto/); ms18 13:44 Pulse 92 MON; Pulse Ox 94% ; ms18 13:58 BP 136 / 72 (auto/); ms18 13:59 Pulse 82 MON; Pulse Ox 95% ; ms18 14:13 BP 133 / 60 (auto/); ms18 14:13 Pulse 100 MON; Pulse Ox 95% ; ms18 14:28 BP 140 / 66 (auto/); ms18 14:29 Pulse 84 MON; Pulse Ox 96% ; ms18 14:43 BP 142 / 63 (auto/); ms18 14:44 Pulse 82 MON; Pulse Ox 97% ; ms18 14:58 BP 119 / 57 (auto/); ms18 14:59 Pulse 82 MON; Pulse Ox 98% ; ms18 15:14 BP 135 / 62 (auto/); ms18 15:14 Pulse 86 MON; Pulse Ox 100% ; ms18 15:32 BP 137 / 67 (auto/); ms18 15:33 Pulse 90 MON; Pulse Ox 100% ; ms18 17:04 BP 154 / 74; Pulse 93; Resp 18; Temp 99.9(TE); Pulse Ox 98% on R/A; Pain 9/10; ms18 17:04 BP 154 / 74 (auto/); kas2 17:04 Pulse 98 MON; Pulse Ox 98% ; kas2 17:28 Pulse 76 MON; Pulse Ox 99% ; ms18 17:29 BP 138 / 65 (auto/); Resp 20; ms18 19:30 BP 157 / 70; Pulse 100; Resp 25; Temp 97.9(O); Pulse Ox 97% on R/A; Pain 9/10; jmv 12:27 Body Mass Index 17.97 (63.50 kg, 187.96 cm) elp MDM: 12:43 ECG WITH READING ER PHYS+CARDIAG ordered. EDMS 13:02 Wax Pumper/Pulse Ox/q 30 min VS ordered. br1 13:02 IV Saline Lock ordered. br1 13:02 Rhythm Strip to chart ordered. br1 13:02 Undress patient appropriately for examination ordered. br1 13:03 Basic Metabolic Profile Ordered. EDMS 13:03 CBC with Diff Ordered. EDMS 13:03 Cardiac Injury Profile Ordered. EDMS 13:03 Troponin Ordered. EDMS 13:04 Chest, 2 View (pa\E\lat) Ordered. EDMS 13:05 Reticulocyte Count Ordered. EDMS 13:20 NS 0.9% 1000 ml IV at bolus once ordered. br1 13:20 morphine 4 mg IVP once ordered. br1 13:20 Aspirin 324 mg PO once ordered. br1 13:56 CBC with Diff Reviewed. br1 13:56 Reticulocyte Count Reviewed. br1 14:08 Basic Metabolic Profile Reviewed. br1 14:08 Cardiac Injury Profile Reviewed. br1 14:08 Troponin Reviewed. br1 14:08 Chest, 2 View (pa\E\lat) Reviewed. br1 14:10 morphine 4 mg IVP once ordered. br1 14:55 morphine 4 mg IVP once ordered. br1 14:56 BED REQUEST+ADM ordered. EDMS 15:32 Admission / Observation Status ordered. EDMS 15:32 ELECTROCARDIOGRAM ADULT ordered. EDMS 15:32 REGULAR DIET ordered. EDMS 15:33 CARDIAC INJURY PROFILE Ordered. EDMS 15:33 TROPONIN Ordered. EDMS 15:33 URINALYSIS Ordered. EDMS 15:33 IRON (FE) Ordered. EDMS 15:33 TOTAL IRON BINDING CAPACIT Ordered. EDMS 15:33 FERRITIN Ordered. EDMS 15:33 VITAMIN B12 LEVEL Ordered. EDMS 15:33 FOLATE Ordered. EDMS 15:33 HAPTOGLOBIN Ordered. EDMS 15:34 LACTATE DEHYDROGENASE Ordered. EDMS 15:34 BILIRUBIN,TOTAL Ordered. EDMS 15:34 BILIRUBIN,DIRECT Ordered. EDMS 15:35 URINE CULTURE Ordered. EDMS 16:00 Financial registration complete. zo 16:00 [facility] [place] was scanned into [employer] and attached to record. zo 16:04 HEMOGLOBIN & HEMATOCRIT Ordered. EDMS 16:05 BLOOD CULTURES Ordered. EDMS 16:18 DIRECT MEGAN Ordered. EDMS 16:59 RBC MORPH PROF NO CHARGE Ordered. EDMS 17:13 Dilaudid - HYDROmorphone 1 mg IVP once; hospitalist order ordered. ms18 19:31 CARDIAC INJURY PROFILE Ordered. EDMS 19:32 CARDIAC INJURY PROFILE Ordered. EDMS 19:32 TROPONIN Ordered. EDMS 19:32 TROPONIN Ordered. EDMS 19:32 CBC WITH DIFFERENTIAL Ordered. EDMS 19:32 COMPLETE COMPHRENSIVE METABOLI Ordered. EDMS 19:32 MAGNESIUM LEVEL Ordered. EDMS 19:32 HEMOGLOBIN & HEMATOCRIT Ordered. EDMS 19:32 HEMOGLOBIN & HEMATOCRIT Ordered. EDMS 19:32 HEMOGLOBIN & HEMATOCRIT Ordered. EDMS 19:32 HEMOGLOBIN & HEMATOCRIT Ordered. EDMS 19:32 RETICULOCYTE COUNT Ordered. EDMS 11/15 13:46 T-Sheet-- Draft Copy was scanned into [employer] and attached to record. gb 13:47 ECG/EKG was scanned into [employer] and attached to record. gb Administered Medications: 11/14 13:39 Drug: NS 0.9% 1000 ml [sodium chloride 0.9 % intravenous solution] Route: IV; Rate: ms18 bolus; Site: left antecubital; 17:07 Follow up: IV Status: Completed infusion; IV Intake: 1000ml ms18 13:39 Drug: morphine 4 mg [morphine 4 mg/mL intravenous cartridge (1 mL)] Route: IVP; Site: ms18 left antecubital; 14:19 Follow up: Response: Pain is unchanged, physician notified ms18 13:39 Drug: Aspirin 324 mg [aspirin 81 mg chewable tablet (4 tabs)] Route: PO; ms18 14:19 Follow up: Response: No Adverse Reaction ms18 14:25 Drug: morphine 4 mg [morphine 4 mg/mL intravenous cartridge (1 mL)] Route: IVP; Site: ms18 left antecubital; 17:07 Follow up: Response: No Adverse Reaction; Pain is unchanged, physician notified ms18 15:36 Drug: morphine 4 mg [morphine 4 mg/mL intravenous cartridge (1 mL)] Route: IVP; Site: ms18 left antecubital; 17:08 Follow up: Response: No Adverse Reaction; Pain is unchanged, physician notified ms18 17:21 Drug: Dilaudid - HYDROmorphone 1 mg [hydromorphone 1 mg/mL injection syringe (1 mL)] ms18 Route: IVP; Site: left antecubital; Signatures: [facility] Rani Delgado, Ernst Reg Evita TeranRN RN Carolee Murray Brian, MD MD br1 Aleena Malhotra RN RN ms18 Brijesh Pablo RN RN mts Smith, Kim, RN RN kas2 The chart was reviewed and I authenticate all verbal orders and agree with the evaluation and treatment provided.Corrections: (The following items were deleted from the chart) 16:06 15:33 HEMOGLOBIN & HEMATOCRIT ordered. EDMS EDMS 16:06 15:35 BLOOD CULTURES ordered. EDMS EDMS 16:41 15:32 INDIRECT MEGAN TYPE SPECIFIC ordered. EDMS EDMS 19:36 17:01 RBC MORPH PROF NO CHARGE ordered. EDMS EDMS Attachments: 16:00 [facility] [place] zo 11/15 13:46 T-Sheet-- Draft Copy gb 13:47 ECG/EKG gb Chart Complete MTDD
== END 2016-11-16 10:39 | disposition home or self-care (01) | DRG 812 ==
LOC: M ED 12:26 → M ED INP 16:18 → M PCU 20:03
PROVIDERS: ADMIT Internal Medicine; ATTEND Internal Medicine
DX: D57.00 Hb-SS disease with crisis, unspecified (principal); Z80.3 Family history of malignant neoplasm of breast

== ENCOUNTER → 2016-11-19 | Outpatient (REF) | payer MEDICARE, MEDICAID ==
[~2016-11-19] MED LIST: ATIV1TAB7 PO; FOLI400T PO; IBUP800T23 PO; NORC10TA2 PO
[2016-11-24 00:20] LABS: BENZODIAZEPINES, URINE SCREEN Negative ng/mL (Cutoff=200); METHADONE, URINE SCREEN Negative ng/mL (Cutoff=300); OPIATES, URINE Positive ng/mL (Cutoff=300)
== END ==
LOC: M SFHCPLAZ 15:50
PROVIDERS: ATTEND Family Medicine
DX: D57.00 Hb-SS disease with crisis, unspecified (principal); R01.1 Cardiac murmur, unspecified; F17.200 Nicotine dependence, unspecified, uncomplicated
CPT/HCPCS: 80307; G0463

== ENCOUNTER → 2016-12-06 | Outpatient (CLI) | payer MEDICARE, MEDICAID ==
[~2016-12-06] MED LIST changes: +ISOVUE-370 76% 100ML VIAL (Q9967) As Ordered ONE
--- NOTE | 2016-12-06 15:38 | REP ---
Clinical: Sickle cell anemia with shortness of breath . Technique: Axial contrast enhanced images from the thoracic inlet to the upper abdomen using 100 ml Isovue 370 intravenous contrast material with coronal and sagittal re-formations. Findings: Satisfactory enhancement of the pulmonary vasculature is achieved and no filling defects are identified to suggest pulmonary embolus. Lung lanza demonstrate minimal peripheral right basilar atelectasis. No focal consolidation, effusion or pneumothorax. No adenopathy. Thoracic aorta is normal. Heart is upper limits of normal in size. 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 Normal bilateral adrenal glands. Impression: 1. No evidence for pulmonary embolus. 2. Minimal peripheral right lower lobe atelectasis. 3. Heart is upper limits of normal in size. Upper abdomen demonstrates calcified autosplenectomy. Signed by Raulito Colbert MD 12/06/2016 03:29 P
== END ==
LOC: M RAD 15:03
PROVIDERS: ATTEND Student in an Organized Health Care Education/Training Program
DX: D57.1 Sickle-cell disease without crisis (principal)
CPT/HCPCS: 71275; Q9967